=== PATIENT | male | born 1970 | race Caucasian/White ===

== ENCOUNTER → 2018-03-31 09:10 | Outpatient (CLI) | payer BC, SELFPAY ==
[2018-03-31 10:26] LABS: Absolute Neutrophil Count 4.9 X10^3/uL (2.0-7.7); Basophil# 0.07 X10^3/uL; Basophil% 0.9 % (0-1); Eosinophil# 0.33 X10^3/uL; Eosinophils% 4.1 % (0-5); Hematocrit 46.2 % (40-54); Hemoglobin 15.3 g/dl (13.0-16.5); Lymphocyte % 27.3 % (19-41); Mean Corp Hgb Conc 33.1 g/gl (32-36); Mean Corpuscular Hgb 29.3 pg (27.0-32.0); Mean Corpuscular Volume 88.3 fL (80-94); Mean Platelet Vol. 9.7 fl (6.2-12.0); Monocyte# 0.55 X10^3/uL; Monocyte% 6.8 % (0-10); Neutrophil # 4.91 X10^3/uL (2.7-7.7); Neutrophil % 60.8 % (47-70); POSITIVE COUNT NO; POSITIVE DIFFERENTIAL NO; POSITIVE MORPHOLOGY NO; Platelet Count 293 K/mm3 (150-450); RBC Distribution Width CV 13.5 % (11.6-14.6); RBC Distribution Width SD 43.3 fl (35.1-43.9); Red Blood Count 5.23 M/mm3 (4.6-6.2); White Blood Count 8.1 K/mm3 (4.4-11.0)
[2018-03-31 10:38] LABS: ALB/GLOB Ratio 1.2 RATIO (0.9-2.4); AST(SGOT) 21 U/L (15-37); Alanine Aminotransfer ALT/SGPT 30 U/L (16-61); Albumin, Serum 3.9 g/dL (3.2-5.0); Alkaline Phosphatase 127 U/L (45-117); Anion Gap 6 (5-15); BUN 17 mg/dL (7-18); BUN/Creat Ratio 16.3 RATIO (10-20); Calcium,Total 8.6 mg/dL (8.5-10.1); Chloride 106 mmol/L (98-107); Cholesterol 155 mg/dL (200); Creatinine, Serum 1.04 mg/dL (0.70-1.30); EST Glomerular Filtration Rate 81 mL/min (>60); Est Glom Filt Rate - Afr Amer 98 mL/min (>60); Globulin 3.3 g/dL (2.2-4.2); Glucose 104 mg/dL (74-106); High Density Lipoprotein 24 mg/dL; Potassium 4.2 mmol/L (3.5-5.1); Protein, Total 7.2 g/dL (6.4-8.2); Sodium Level 138 mmol/L (136-145); Triglycerides 134 mg/dL; Very Low Density Lipoprotein 27 mg/dL (5-40)
== END ==
LOC: LAB.FUTURE 01-21 10:09 → BFHLAB 04-19 14:02
PROVIDERS: Family Provider Family Medicine; PCP Family Medicine; Referring Provider Family Medicine; Visit Provider Family Medicine
DX: Z00.00 Encounter for general adult medical examination without abnormal findings (principal); I10 Essential (primary) hypertension; E78.5 Hyperlipidemia, unspecified
CPT/HCPCS: 36415; 80053; 80061; 85025

== ENCOUNTER 2019-08-19 08:27 | Day surgery (SDC) | payer BC, SELFPAY ==
[2019-08-19] VITALS (7 sets, daily range): BP systolic 119–144; BP diastolic 84–92; PULSE 66–83; RESP 14–16; TEMP 35.6–36.3; O2SAT 97–99; BMI 28.7
[2019-08-19] MEDS: Lactated Ringers 1,000 ML 100 ML IV (08:55)
--- NOTE | 2019-08-19 09:15 | H&P.OPEN ---
History of Present Illness Date of Admission: 08/19/19 The patient is a 49 year old M presents for screening colonoscopy. Patient is never had a previous colonoscopy. Patient is adopted and unsure of his family history. Patient has bowel movements daily denies any blood. Denies any chronic abdominal pain. Patient does occasionally have reflux was diagnosed with eosinophilic esophagitis back in 2017. Past Medical/Surgical History - Planned Operation Planned Operative Procedure/s: COLONOSCOPY Date of Operative Procedure: 08/19/19 Permit Signed: No S.O.S: No Is This Patient Having a Total Joint: No - Previous Hospitalizations/Surgeries HX Hospitalizations: Yes HX of Surgeries: tonsillectomy,vasectomy, cholecystectomy, R knee surgery, L knee surgery x3, L shoulder rotator cuff repair Any Problems With Anesthesia: No You/Your Family Experience Fever (Hyperthermia) With Anes: No Cholinesterase deficiency: No - Cardiovascular Hx Chest Pain within Last 2 months: No Hx of Irregular Heartbeat and/or Afib: No Hx Heart Attack: No Hx Congestive Heart Failure: No Hx Rheumatic Fever: No Hx Hypertension: Yes Hx Internal Defibrillator: No Hx Pacemaker: No Hx Cardiac Catheterization: Yes - [facility] 2017 What facility was last heart cath performed: [facility] Date of last Heart Cath: 2016 Hx Cardiac Surgery/Stents/Etc.: No Hx Stress Test: No HX Edema: No Hx Pain in Legs when Walking/Leg Cramps: No - Respiratory Chronic Cough: No HX of Shortness of Breath: No Hoarseness: No Hx Chronic Obstructive Pulmonary Disease (COPD): No Hx Asthma: No Hx Emphysema: No Hx Sleep Apnea: No Hx Oxygen Use at Home: No Hx Respiratory Tract Infection/Cold (presently): No Do You Snore Loudly (louder than talking or can be heard): No Do You Often Feel Tired/ Fatigued/ Sleepy Dring Daytime?: No Has Anyone Observed You Stop Breathing During Sleep?: No Result (for STOP score): Negative Hx Smoking: Yes Smoking Status: Former smoker - Gastrointestinal Hx Gastroesophageal Reflux: Yes Controlled With Meds: Yes - PEPCID Hx Gastrointestinal Disorders: No Hx Gastrointestinal Bleed: No Hx Ulcer: No Hx Hiatal Hernia: No Difficulty Chewing/Swallowing: No Recent Onset of Swallowing Problems: No Special diet followed at home: No Hx Unplanned Weight Loss of 20#: No HX Unplanned Weight Gain of 20#: No - Neurological Hx Seizures: No HX Syncope/Blackout Spells/Unconsciousness: No Hx CVA/Stroke: No Hx Transient Ischemic Attacks (TIA): No Hx Multiple Sclerosis: No Hx Parkinson's Disease: No Hx Head/Neck Injury: No Hx Headaches: No Hx Back Injury/Pain: No Recent Onset of Speech Difficulty: No Restless Legs: No Does patient have nerve stimulator: No - Blood Disorder Hx Leukemia: No Bleeding Tendencies: No Hx Deep Vein Thrombosis: No Hx High Cholesterol: No Blood Transmitted Disease: No Hx Hepatitis: No Hx Cirrhosis: No Hx Anemia: No Hx Blood Disorders: No - Genitourinary Hx Renal Disease: No Hx Dialysis: No - Musculoskeletal Hx Arthritis: Yes - GENERALIZED Hx Rheumatoid Arthritis: No Hx Gout: No Recent Onset of an Orthopedic Problem: No - Endocrine Hx Diabetes: No Thyroid Disease: No Hx Steroid Therapy: No - Psycho/Social Hx Substance Use: No Hx Alcohol Use: No Hx Anxiety: No Hx Depression: No Mental Illness: No Hx Dementia: No - Miscellaneous Hx Cancer: No Recent Exposure to Contagious Disease: No Active MRSA: No Hx of C-Diff: No Any Loose Teeth: No - PARTIAL UPPER Allergies Penicillins Allergy (Verified 08/19/19 08:36) Hives - Discharge Is Pt Admitted From a Senior Care, or a Senior Living: No Who Could Help: MOTHERJUNE After D/C, Where Do you Plan to Go: Return Home - Physical Exam Vitals/I&O's: Vital Signs Temp Pulse Resp BP Pulse Ox 97.1 F L 83 16 128/91 H 98 08/19/19 08:47 08/19/19 08:47 08/19/19 08:47 08/19/19 08:47 08/19/19 08:47 Oxygen Delivery Method Room Air Weight: 200 lb Body Mass Index (BMI) 28.7 General: Alert, Oriented x3, Cooperative, No apparent distress HEENT: Atraumatic Lungs: Normal air movement Cardiovascular: Regular rate Abdomen: Soft, Non Tender, Non-Distended Extremities: No clubbing, No cyanosis, No edema Neurological: Cranial nerves II-XII grossly intact Psych/Mental Status: Normal Affect Current Medications Lactated Ringer's () 1,000 mls @ 100 mls/hr IV .Q10H SATURNINO Last Admin: 08/19/19 08:55 Dose: 100 mls/hr Documented by: Assessment/Plan 49-year-old male screening for colon cancer, unknown family history as he is adopted Procedure Criteria Procedure Type: Elective COVID Risk Discussion: The surgeon/proceduralist and patient have discussed in detail the risk of exposure to and/or potential harm posed by the COVID-19 virus with having a surgery/procedure at this time versus the risk of delaying the surgery/procedure. It is not possible to know either the risk of delaying the surgery or procedure or chance of getting an infection with perfect accuracy, but a joint decision was made between the patient and the surgeon/proceduralist to proceed at this time with the scheduled surgery/procedure as indicated on the consent form. Surgery Risks - Colonoscopy I discussed with the patient the risks of the procedure: Yes Risks Include but are not Limited To: Risks include but are not limited to: Bleeding, perforation requiring further surgery, inability to complete colonoscopy requiring barium enema.
--- NOTE | 2019-08-19 09:30 | COLBX_PTH ---
PATIENT: SANGEETHA CHRISTOPHER LOC: [facility] U#:[id number] AGE/SX: 49/M ROOM: RE08/19/[address]: Dr. Emeli Diaz MD : 1970 BED: DIS: 08/19/2019 SPEC #: [id number] RECD: 08/19/19 12:52 STATUS: DAVID AMALIA #: [id number] JAZZY: 08/19/19 09:[address]: Emeli Diaz DEPT: SURGICAL PATHOLOGY RECD BY: Tawanda Yi ENTERED: 08/20/19 08:06 SP TYPE: COLON BX LULY DR: Dr. Juliocesar Brownlee DO Tissues: A - POLYP B - Ascending colon C - Transverse colon E - Rectum, NOS Procedures: Surgery Specimen Level IV HEADER OPERATION: Colonoscopy - open access (MAC) PRE-OP DIAGNOSIS: Screening TISSUE SUBMITTED: A - Appendiceal orifice polyp biopsy, B - Ascending polyp, C - Transverse polyp biopsy, D - Rectal polyp biopsy MICROSCOPIC DIAGNOSIS A. Appendiceal orifice polyp, biopsy: Fragments of colonic mucosa, no pathologic diagnosis. B. Ascending colon polyp, biopsy: Fragments of hyperplastic polyp. C. Transverse colon polyp, biopsy: Fragments of hyperplastic polyp. D. Rectal polyp, biopsy: Fragments of hyperplastic polyp. SJ:rg 08/21/19 COMMENT Case has been reviewed in consultation with Dr. Veliz who concurs with the above diagnosis. IDC:AM MICROSCOPIC DESCRIPTION Slides are reviewed. GROSS DESCRIPTION A - Received in fixative is one container labeled with the patient's name and designated appendiceal orifice polyp biopsy. The specimen consists of three irregular fragments of light thompson soft tissue that in aggregate measure 1 x 0.2 x 0.1 cm. The specimen is totally submitted in one cassette. B - Received in fixative is one container labeled with the patient's name and designated ascending polyp biopsy. The specimen consists of two irregular fragments of light thompson soft tissue that in aggregate measure 0.4 x 0.2 x 0.1 cm. The specimen is totally submitted in one cassette. C - Received in fixative is one container labeled with the patient's name and designated transverse polyp biopsy. The specimen consists of multiple irregular fragments of light thompson soft tissue that in aggregate measure 1 x 0.3 x 0.1 cm. The specimen is totally submitted in one cassette. D - Received in fixative is one container labeled with the patient's name and designated rectal polyp biopsy. The specimen consists of three irregular fragments of light thompson soft tissue that in aggregate measure 0.5 x 0.3 x 0.1 cm. The specimen is totally submitted in one cassette. / SJ:rg 08/20/19 TC:1 CPT: 47705 x4
[2019-08-19] MEDS: 0.9% Saline Lock 10 ML Syringe IV (09:52)
--- NOTE | 2019-08-19 10:13 | OP.CCLET_ITS ---
08/19/2019 Juliocesar Brownlee [address] [place] [address] Re : Colonoscopy procedure for Avelino Higgins Dear Dr. Brownlee This procedure was performed on Monday, August 19, 2019. My impressions and recommendations are as follows: Impressions : - Three 3 to 6 mm polyps in the rectum, in the transverse colon and at the appendiceal orifice, removed with a cold biopsy forceps. Resected and retrieved. - One 5 mm polyp in the ascending colon, removed with a hot snare. Resected and retrieved. - The examination was otherwise normal on direct and retroflexion views. Recommendations : - Discharge patient to home. - Resume previous diet. - Continue present medications. - Await pathology results. - Repeat colonoscopy in 3 years for surveillance based on pathology results. My findings are described in the full procedure note, which is enclosed. If I can be of further assistance, please feel free to contact me at Doctor phone number(s): , Work: . Sincerely, MD Emeli Chaparro MD 08/19/2019 10:13:01 AM This report has been signed electronically.
--- NOTE | 2019-08-19 10:13 | OP.COLON_ITS ---
Patient Name: Avelino Higgins Procedure Date: 08/19/2019 9:20 AM Date of : 1970 Age: 49 Procedure: Colonoscopy Indications: Screening for colorectal malignant neoplasm Providers: Emeli Diaz MD Referring MD: Juliocesar Brownlee Medicines: Monitored Anesthesia Care Patient Profile: This is a 49 year old male. Last Colonoscopy: none. The patient's first colonoscopy is today. Complications: No immediate complications. Procedure: Pre-Anesthesia Assessment: - Prior to the procedure, a History and Physical was performed, and patient medications and allergies were reviewed. The patient's tolerance of previous anesthesia was also reviewed. The risks and benefits of the procedure and the sedation options and risks were discussed with the patient. All questions were answered, and informed consent was obtained. Prior Anticoagulants: The patient has taken no previous anticoagulant or antiplatelet agents. ASA Grade Assessment: Per anesthesia. After reviewing the risks and benefits, the patient was deemed in satisfactory condition to undergo the procedure. After I obtained informed consent, the scope was passed under direct vision. Throughout the procedure, the patient's blood pressure, pulse, and oxygen saturations were monitored continuously. The Colonoscope was introduced through the anus and advanced to the cecum, identified by the appendiceal orifice, ileocecal valve and palpation. The colonoscopy was performed without difficulty. The patient tolerated the procedure well. The quality of the bowel preparation was good. Scope In: 9:28:22 AM Scope Withdrawal Time 0 hours 30 minutes 37 seconds Scope Out: 10:02:19 AM Total Procedure Duration Time 0 hours 33 minutes 57 seconds Findings: The perianal and digital rectal examinations were normal. Three sessile polyps were found in the rectum, transverse colon and appendiceal orifice. The polyps were 3 to 6 mm in size. These polyps were removed with a cold biopsy forceps. Resection and retrieval were complete. A 5 mm polyp was found in the ascending colon. The polyp was semi-pedunculated. The polyp was removed with a hot snare. Resection and retrieval were complete. The exam was otherwise without abnormality on direct and retroflexion views. Impression: - Three 3 to 6 mm polyps in the rectum, in the transverse colon and at the appendiceal orifice, removed with a cold biopsy forceps. Resected and retrieved. - One 5 mm polyp in the ascending colon, removed with a hot snare. Resected and retrieved. - The examination was otherwise normal on direct and retroflexion views. Recommendation: - Discharge patient to home. - Resume previous diet. - Continue present medications. - Await pathology results. - Repeat colonoscopy in 3 years for surveillance based on pathology results. Procedure Code(s): --- Professional --- 39974, PT, Colonoscopy, flexible; with removal of tumor(s), polyp(s), or other lesion(s) by snare technique 77805, 59, Colonoscopy, flexible; with biopsy, single or multiple Diagnosis Code(s): --- Professional --- Z12.11, Encounter for screening for malignant neoplasm of colon K62.1, Rectal polyp D12.3, Benign neoplasm of transverse colon (hepatic flexure or splenic flexure) D12.1, Benign neoplasm of appendix D12.2, Benign neoplasm of ascending colon CPT copyright 2017 [employer]. All rights reserved. The codes documented in this report are preliminary and upon machine cleaner review may be revised to meet current compliance requirements. MD Emeli Chaparro MD 08/19/2019 10:13:01 AM This report has been signed electronically. Number of Addenda: 0 Note Initiated On: 08/19/2019 9:20 AM
== END 2019-08-19 11:01 | disposition home or self-care (01) ==
LOC: EN 08:29 → AC 08:30
PROVIDERS: Anesthesiology; PCP Family Medicine; Referring Provider Family Medicine; Visit Provider Surgery
PROC: 0DJD8ZZ Inspection of Lower Intestinal Tract, Via Natural or Artificial Opening Endoscopic (ICD-10-PCS; CPT 45378; principal; 2019-08-19 09:25)
DX: Z12.11 Encounter for screening for malignant neoplasm of colon (principal); I10 Essential (primary) hypertension; Z87.891 Personal history of nicotine dependence; K21.9 Gastro-esophageal reflux disease without esophagitis; K62.1 Rectal polyp; D12.3 Benign neoplasm of transverse colon; D12.1 Benign neoplasm of appendix; D12.2 Benign neoplasm of ascending colon; Z88.0 Allergy status to penicillin; Z90.49 Acquired absence of other specified parts of digestive tract; Z11.59 Encounter for screening for other viral diseases
CPT/HCPCS: 45380; 45385; 87635; 88305; G2023; J7120; A4216; U0003

== ENCOUNTER → 2020-03-24 16:22 | Outpatient (CLI) | payer BC, SELFPAY ==
[2019-08-19 08:47] VITALS: BMI 28.7
[2020-03-24 17:26] LABS: Absolute Lymphocyte Count 3.02 X10^3/uL (0.83-4.51); Absolute Neutrophil Count 5.4 X10^3/uL (2.0-7.7); Basophil# 0.09 X10^3/uL; Basophil% 0.9 % (0-1); Eosinophil# 0.31 X10^3/uL; Eosinophils% 3.3 % (0-5); Hematocrit 44.1 % (40-54); Hemoglobin 14.8 g/dL (13.0-16.5); Lymphocyte # 3.02 X10^3/ul (4.0); Lymphocyte % 31.7 % (19-41); Mean Corp Hgb Conc 33.6 g/dL (32-36); Mean Corpuscular Hgb 29.3 pg (27.0-32.0); Mean Corpuscular Volume 87.3 fL (80-94); Mean Platelet Vol. 9.8 fl (6.2-12.0); Monocyte# 0.67 X10^3/uL; NRBC Flagged by Analyzer 0 % (0-5); Neutrophil # 5.39 X10^3/uL (2.7-7.7); Neutrophil % 56.7 % (47-70); Platelet Count 335 K/mm3 (150-450); RBC Distribution Width CV 13.1 % (11.6-14.6); RBC Distribution Width SD 41.5 fl (35.1-43.9); Red Blood Count 5.05 M/mm3 (4.6-6.2); White Blood Count 9.5 K/mm3 (4.4-11.0)
[2020-03-24 18:08] LABS: ALB/GLOB Ratio 1.4 RATIO (0.9-2.4); AST(SGOT) 20 U/L (15-37); Alanine Aminotransfer ALT/SGPT 48 U/L (16-61); Albumin, Serum 4.2 g/dL (3.2-5.0); Alkaline Phosphatase 126 U/L (45-117); Anion Gap 4 (5-15); BUN 20 mg/dL (7-18); BUN/Creat Ratio 18.9 RATIO (10-20); Calcium,Total 8.4 mg/dL (8.5-10.1); Chloride 106 mmol/L (98-107); Cholesterol 179 mg/dL (200); Creatinine, Serum 1.06 mg/dL (0.70-1.30); EST Glomerular Filtration Rate 78 mL/min (>60); Est Glom Filt Rate - Afr Amer 95 mL/min (>60); Glucose 77 mg/dL (74-106); High Density Lipoprotein 26 mg/dL; Magnesium 2.2 mg/dL (1.6-2.6); Potassium 3.6 mmol/L (3.5-5.1); Protein, Total 7.2 g/dL (6.4-8.2); Sodium Level 138 mmol/L (136-145); Thyroid Stim Hormone (TSH) 1.99 uIU/mL (0.358-3.74); Triglycerides 173 mg/dL; Very Low Density Lipoprotein 35 mg/dL (5-40)
== END ==
PROVIDERS: PCP Family Medicine; Visit Provider Family Medicine
DX: Z00.00 Encounter for general adult medical examination without abnormal findings (principal); I10 Essential (primary) hypertension; R00.2 Palpitations
CPT/HCPCS: 36415; 80053; 80061; 83735; 84443; 85025

== ENCOUNTER → 2020-04-08 09:13 | Outpatient (CLI) | payer BC, SELFPAY ==
[2019-08-19 08:47] VITALS: BMI 28.7
== END ==
PROVIDERS: PCP Family Medicine; Visit Provider Family Medicine
DX: R07.9 Chest pain, unspecified (principal)
CPT/HCPCS: 36415; 84484

== ENCOUNTER → 2020-04-15 13:08 | Outpatient (CLI) | payer BC, SELFPAY ==
[2019-08-19 08:47] VITALS: BMI 28.7
--- NOTE | 2020-04-15 13:13 | STEWCON_ITS ---
Reason For Study: CHEST PAIN Stress Results Protocol: Jerson Protocol WITH DEFINITY Maximum Predicted HR: 170 bpm Target HR: 145 bpm % Maximum Predicted HR: 105 % DurationHeart Rate Stage (mm:ss) (bpm) BP Comment BASELINE 75 122/84 STAGE 1 3:00 118 142/84 STAGE 2 3:00 142 178/88 STAGE 3 3:00 162 182/88 STAGE 4 1:30 179 / 4 CC DEFINITY TOTAL FOR TEST, SOB NOTED RECOVERY 121 156/88 Stress Duration: 10:30 mm:ss Maximum Stress HR: 179 bpm Baseline Echocardiogram Findings Stress Echo Wall motion Data Resting WM Intermediate WM Stress WM Interpretation Summary Exercise stress echo. 49-year-old man with a history of hypertension gastroesophageal reflux disease. Stress protocol: Resting EKG demonstrates normal sinus rhythm with a rate of 81 bpm normal intervals are noted resting blood pressure is 122/84 mmHg. The patient exercised according to the regular Jerson protocol for a total duration of 10 minutes and 31 seconds completing 1 minute and 31 seconds into stage IV of the Jerson protocol. The maximum heart rate attained was 181 bpm which was 106% of max impacted heart rate the maximum workload was 13.4 metabolic equivalents. At rest there were no ST or T wave changes noted at peak exercise upsloping ST changes less than 1 mm were noted in lead II, III and aVF V4 V5. The above did not meet the criteria for ischemia. The peak blood pressure was 180/70 mmHg which was a good blood pressure response to exercise. No chest pain was noted. No arrhythmias were noted. Stress echocardiographic. The resting and stress echocardiographic images demonstrated preserved ejection fraction at rest of 55%. There was thickening of all mathews reduction in left ventricular cavity size and peaking of ejection fraction at 65%. No wall motion abnormalities were present. Conclusion: Exercise stress echo with no EKG criteria for ischemia at a high workload. No clinical angina noted. Preserved ejection fraction. Ordering Physician: Juliocesar Brownlee Referring Physician: Juliocesar Brownlee Performed By: Paty Ferrari, KYLAH, RVT
== END ==
PROVIDERS: PCP Family Medicine; Referring Provider Family Medicine; Visit Provider Family Medicine
DX: R07.9 Chest pain, unspecified (principal); I10 Essential (primary) hypertension
CPT/HCPCS: 93017; 93350; Q9957; A4216; C8928

== ENCOUNTER 2020-04-21 09:26 | Outpatient (RCR) | payer BC, SELFPAY ==
[2019-08-19 08:47] VITALS: BMI 28.7
[2020-04-21] MEDS: COVID-19 VACC, MRNA(PFIZER)/PF 30 MCG/0.3 ML SYRINGE IM (16:28)
[2020-05-12] MEDS: COVID-19 VACC, MRNA(PFIZER)/PF 30 MCG/0.3 ML SYRINGE IM (16:32)
== END 2020-04-21 23:59 ==
LOC: IMMUN 09:26
PROVIDERS: PCP Family Medicine; Visit Provider Family Medicine
DX: Z23 Encounter for immunization (principal)
CPT/HCPCS: 0001A; 0002A; 91300

== ENCOUNTER → 2020-06-05 16:39 | Outpatient (CLI) | payer BC, SELFPAY ==
[2019-08-19 08:47] VITALS: BMI 28.7
== END ==
PROVIDERS: PCP Family Medicine; Referring Provider Internal Medicine Gastroenterology; Visit Provider Internal Medicine Gastroenterology
DX: Z11.59 Encounter for screening for other viral diseases (principal)
CPT/HCPCS: 87635; C9803; U0002

== ENCOUNTER → 2020-06-08 08:21 | Outpatient (CLI) | payer BC, SELFPAY ==
[2019-08-19 08:47] VITALS: BMI 28.7
--- NOTE | 2020-06-08 08:34 | RAD_ITS ---
STUDY: X-RAY - ESOPHAGUS (BARIUM SWALLOW) WITH FLUOROSCOPY REASON FOR EXAM: Male, 49 years old. DYSPHAGIA. Worsening gastroesophageal reflux. TECHNIQUE: 15 view(s) of the esophagus were obtained following swallowing of barium. FLUOROSCOPY TIME (if supplied): (27 seconds) minutes/seconds COMPARISON: None. FINDINGS: There is no demonstrated esophageal foreign body. There is no demonstrated stricture or mucosal abnormality. Normal gastroesophageal junction, without a demonstrated hiatal hernia. The patient ingested a 12 mm tablet of barium without any difficulty. Normal visualized aortic arch and descending thoracic aorta. Normal visualized pulmonary parenchyma. Normal visualized osseous structures of the thorax. RAD/Esophagus Dual Contrast IMPRESSION: Normal plain film x-ray examination (barium swallow) of the esophagus. Electronically Signed: Osito Khan MD at 9:58 EDT , Service support ,
== END ==
PROVIDERS: PCP Family Medicine; Referring Provider Internal Medicine Gastroenterology; Visit Provider Internal Medicine Gastroenterology
DX: R13.10 Dysphagia, unspecified (principal)
CPT/HCPCS: 74221

== ENCOUNTER → 2020-06-15 | Outpatient (CLI) | payer BC, SELFPAY ==
[2019-08-19 08:47] VITALS: BMI 28.7
--- NOTE | 2020-06-15 11:20 | EGD_PTH ---
PATIENT: SANGEETHA CHRISTOPHER LOC: [facility] U#:[id number] AGE/SX: 50/M ROOM: RE06/15/[address]: Dr. Kane Campos MD : 1970 BED: DIS: 06/15/2020 SPEC #: [id number] RECD: 06/15/20 15:30 STATUS: DAVID BACONCody #: [id number] JAZZY: 06/15/20 11:[address]: Kane Campos DEPT: SURGICAL PATHOLOGY RECD BY: Marilin Lopez ENTERED: 06/16/20 08:31 SP TYPE: EGD BIOPSY OT DR: Dr. Juliocesar Brownlee, [facility] Tissues: Esophagus, NOS Procedures: Surgery Specimen Level IV HEADER OPERATION: EGD with biopsies PRE-OP DIAGNOSIS: Dysphagia TISSUE SUBMITTED: Esophageal biopsies, rule out EE MICROSCOPIC DIAGNOSIS Esophageal biopsy: Fragments of squamous epithelium, negative for eosinophilic esophagitis. See comment. OLU:kevin 06/17/2020 COMMENT Increased number of eosinophils consistent with eosinophilic esophagitis are not seen. Focal congestion is noted. MICROSCOPIC DESCRIPTION Slides are reviewed. GROSS DESCRIPTION Received in fixative is one container labeled with the patient's name and designated esophageal biopsies. The specimen consists of multiple irregular fragments of thompson soft tissue that in aggregate measure 1 x 0.5 x 0.1 cm. The specimen is totally submitted in one cassette. / SJ:kevin 06/16/20 TC:5 CPT: 99879
== END | disposition home or self-care (01) ==
LOC: LABSPEC 15:41
PROVIDERS: PCP Family Medicine; Referring Provider Internal Medicine Gastroenterology; Visit Provider Internal Medicine Gastroenterology
DX: R13.10 Dysphagia, unspecified (principal)
CPT/HCPCS: 88305

== ENCOUNTER → 2020-09-15 16:34 | Outpatient (CLI) | payer BC, SELFPAY ==
[2019-08-19 08:47] VITALS: BMI 28.7
--- NOTE | 2020-09-15 16:38 | CT_ITS ---
INDICATION: 50YR OLD MALE W/5MTH HO PERSISTENT L SIDED CHEST RIB PAIN EXAMINATION: CT Chest W/ Contrast Injection TECHNIQUE: Helically acquired images were obtained of the chest following administration of IV contrast. A radiation dose optimization technique was used for this scan. 3D postprocessing images including MIPS were reviewed. IV Contrast dosage and agent: IV 100mL [id number]-300 COMPARISON: None. FINDINGS: Lungs: 3 mm solid pulmonary nodule in the right middle lobe (image 74, series 4). 4 mm pulmonary nodule in the left lower lobe (image 77, series 4). Mediastinum: The cardiomediastinal silhouette is not enlarged. No mediastinal, hilar or axillary adenopathy. The thoracic aorta is unremarkable. No obvious filling defect seen within the visualized pulmonary arteries. Pleura: Unremarkable Bones/Soft tissues: No suspicious osseous or soft tissue lesions Upper abdomen: At least two partially imaged enhancing masses in the right lobe of the liver. CT/Chest WITH Contrast IMPRESSION: No acute abnormalities in the chest. At least two partially imaged enhancing masses in the right lobe of the liver are indeterminate. Recommend CT or MR liver mass protocol for further evaluation. 3 mm and 4 mm pulmonary nodules as described above. Per Fleischner criteria, an optional follow-up Chest CT may be obtained in 12 months. Electronically Signed: Arie Chacon MD at 18:06 EDT Tel , Service support ,
[2020-09-15 17:15] LABS: CREATININE FINGERSTICK 1.4 mg/dL (0.70-1.30)
== END ==
PROVIDERS: PCP Family Medicine; Referring Provider Family Medicine; Visit Provider Family Medicine
DX: R07.81 Pleurodynia (principal)
CPT/HCPCS: 71260; Q9967

== ENCOUNTER → 2020-10-02 06:23 | Outpatient (CLI) | payer BC, SELFPAY ==
[2019-08-19 08:47] VITALS: BMI 28.7
--- NOTE | 2020-10-02 07:00 | MRI_ITS ---
STUDY: MRI ABDOMEN WITH AND WITHOUT CONTRAST REASON FOR EXAM: Male, 50 years old. Liver mass TECHNIQUE: Standardized fat and water weighted pulse sequences were obtained in all 3 orthogonal planes post contrast administration. IV 19ml Dotarem was administered for the contrast portion of the examination. COMPARISON: CT 09/15/2020. FINDINGS: The visualized lung bases are unremarkable. The visualized portions of the heart are within normal limits. There is a slight drop in intensity on opposed phase images compared to in phase images compatible with fatty liver. There are two T1 hypointense/T2 hyperintense lesions in segment 5 of the liver measuring 1 cm and 7 mm, respectively. These lesions demonstrate progressive enhancement with retained contrast on delayed phase. No washout. There are also wedge-shaped regions surrounding these lesions which demonstrate abnormal enhancement pattern compared to the surrounding hepatic parenchyma, most consistent with transient hepatic intensity differences. There are surgical clips in the gallbladder fossa consistent with a prior cholecystectomy. Normal spleen. Normal pancreas. Normal bilateral adrenal glands. Normal right kidney. Normal left kidney. Normal visualized stomach. Normal small intestine. Normal colon. Normal abdominal aorta. Normal inferior vena cava. Normal retroperitoneum. Normal abdominal wall. Normal osseous structures. MRI/MRI Abd WITH and W/O Contrast IMPRESSION: 1 cm and 0.7 cm hepatic hemangiomas in segment 5 with surrounding transient hepatic intensity differences (THIDs). Fatty liver. Electronically Signed: Arie Chacon MD at 17:00 EDT Tel , Service support ,
== END ==
PROVIDERS: PCP Family Medicine; Referring Provider Family Medicine; Visit Provider Family Medicine
DX: R16.0 Hepatomegaly, not elsewhere classified (principal)
CPT/HCPCS: 74183; A9575

== ENCOUNTER → 2021-11-29 | Outpatient (CLI) | payer BC, SELFPAY ==
[2021-11-29 08:07] LABS: Absolute Lymphocyte Count 1.99 X10^3/uL (0.83-4.51); Absolute Neutrophil Count 4.6 X10^3/uL (2.0-7.7); Basophil% 1.3 % (0-1); Eosinophil# 0.18 X10^3/uL; Eosinophils% 2.4 % (0-5); Hematocrit 47.3 % (40-54); Hemoglobin 16.1 g/dL (13.0-16.5); Lymphocyte # 1.99 X10^3/ul (0.83-4.51); Lymphocyte % 26.5 % (19-41); Mean Corpuscular Hgb 30.3 pg (27.0-32.0); Mean Corpuscular Volume 89.1 fL (80-94); Mean Platelet Vol. 9.1 fl (6.2-12.0); NRBC Flagged by Analyzer 0 % (0-5); Neutrophil # 4.63 X10^3/uL (2.7-7.7); Neutrophil % 61.5 % (47-70); Platelet Count 306 K/mm3 (150-450); RBC Distribution Width CV 13.2 % (11.6-14.6); RBC Distribution Width SD 43.1 fl (35.1-43.9); Red Blood Count 5.31 M/mm3 (4.6-6.2); White Blood Count 7.5 K/mm3 (4.4-11.0)
[2021-11-29 08:45] LABS: Albumin, Serum 3.9 g/dL (3.2-5.0); BUN 15 mg/dL (7-18); BUN/Creat Ratio 13.8 RATIO (10-20); Creatinine, Serum 1.09 mg/dL (0.70-1.30); EST Glomerular Filtration Rate 75 mL/min (>60); Est Glom Filt Rate - Afr Amer 91 mL/min (>60); Glucose 110 mg/dL (74-106); Protein, Total 6.9 g/dL (6.4-8.2)
[2021-11-29 08:46] LABS: ALB/GLOB Ratio 1.3 RATIO (0.9-2.4); AST(SGOT) 11 U/L (15-37); Alanine Aminotransfer ALT/SGPT 35 U/L (16-61); Alkaline Phosphatase 119 U/L (45-117); Anion Gap 4 (5-15); Calcium,Total 8.7 mg/dL (8.5-10.1); Chloride 107 mmol/L (98-107); Cholesterol 160 mg/dL (200); High Density Lipoprotein 28 mg/dL; PSA,Total - Annual Screen 1.38 ng/mL (0.00-4.00); Potassium 4.2 mmol/L (3.5-5.1); Sodium Level 140 mmol/L (136-145); Triglycerides 95 mg/dL; Very Low Density Lipoprotein 19 mg/dL (5-40)
[2021-11-29 14:14] LABS: Hemoglobin A1c 5.3 % (3.8-5.6)
== END | disposition home or self-care (01) ==
LOC: LAB 07:30
PROVIDERS: PCP Family Medicine; Referring Provider Family Medicine; Visit Provider Family Medicine
DX: Z00.00 Encounter for general adult medical examination without abnormal findings (principal); Z12.5 Encounter for screening for malignant neoplasm of prostate
CPT/HCPCS: 36415; 80053; 80061; 83036; 84153; 85025; G0103

== ENCOUNTER → 2023-02-01 | Outpatient (CLI) | payer BC, SELFPAY ==
[2023-02-01 08:53] LABS: Absolute Lymphocyte Count 2.54 X10^3/uL (0.83-4.51); Absolute Neutrophil Count 4.9 X10^3/uL (2.0-7.7); Basophil% 1.2 % (0-1); Eosinophils% 4.6 % (0-5); Hematocrit 46.7 % (40-54); Hemoglobin 15.2 g/dL (13.0-16.5); Lymphocyte # 2.54 X10^3/ul (0.83-4.51); Lymphocyte % 29.5 % (19-41); Mean Corp Hgb Conc 32.5 g/dL (32-36); Mean Corpuscular Hgb 29.2 pg (27.0-32.0); Mean Corpuscular Volume 89.6 fL (80-94); Mean Platelet Vol. 9.4 fl (6.2-12.0); Monocyte# 0.61 X10^3/uL; Monocyte% 7.1 % (0-10); NRBC Flagged by Analyzer 0 % (0-5); Neutrophil # 4.94 X10^3/uL (2.7-7.7); Neutrophil % 57.3 % (47-70); Platelet Count 309 K/mm3 (150-450); RBC Distribution Width CV 13.4 % (11.6-14.6); RBC Distribution Width SD 44.1 fl (35.1-43.9); Red Blood Count 5.21 M/mm3 (4.6-6.2); White Blood Count 8.6 K/mm3 (4.4-11.0)
[2023-02-01 09:51] LABS: ALB/GLOB Ratio 1.1 RATIO (0.9-2.4); AST(SGOT) 14 U/L (15-37); Alanine Aminotransfer ALT/SGPT 29 U/L (16-61); Albumin, Serum 3.5 g/dL (3.2-5.0); Alkaline Phosphatase 116 U/L (45-117); Anion Gap 3 (5-15); BUN 20 mg/dL (7-18); BUN/Creat Ratio 18.3 RATIO (10-20); Calcium,Total 8.9 mg/dL (8.5-10.1); Chloride 109 mmol/L (98-107); Cholesterol 169 mg/dL (200); Creatinine, Serum 1.09 mg/dL (0.70-1.30); EST Glomerular Filtration Rate 75 mL/min (>60); Est Glom Filt Rate - Afr Amer 91 mL/min (>60); Globulin 3.2 g/dL (2.2-4.2); Glucose 111 mg/dL (74-106); High Density Lipoprotein 28 mg/dL; Potassium 4.1 mmol/L (3.5-5.1); Protein, Total 6.7 g/dL (6.4-8.2); Sodium Level 140 mmol/L (136-145); Triglycerides 110 mg/dL; Very Low Density Lipoprotein 22 mg/dL (5-40)
== END | disposition home or self-care (01) ==
LOC: LAB 07:56
PROVIDERS: PCP Family Medicine; Referring Provider Nurse Practitioner Family; Visit Provider Nurse Practitioner Family
DX: Z00.01 Encounter for general adult medical examination with abnormal findings (principal); I10 Essential (primary) hypertension; E78.6 Lipoprotein deficiency
CPT/HCPCS: 36415; 80053; 80061; 84153; 85025; G0103

== ENCOUNTER → 2023-02-01 | Outpatient (CLI) | payer BC, SELFPAY ==
--- NOTE | 2023-02-01 13:17 | CT_ITS ---
EXAM: CT CHEST, LUNG CANCER SCREENING WITHOUT INTRAVENOUS CONTRAST CLINICAL INDICATION: Personal history of nicotine dependence TECHNIQUE: Helically acquired images were obtained of the chest without intravenous contrast using low dose (LDCT) lung cancer screening protocol. This CT exam was performed using one or more of the following dose reduction techniques: automated exposure control, adjustment of the mA and/or kV according to patient size, and/or use of iterative reconstruction technique. COMPARISON: CT chest, 09/15/2020. FINDINGS: LUNGS AND PLEURAL SPACES: Unchanged solid 6 mm right upper lobe pulmonary nodule (image 73, series 2). Unchanged solid pleural-based 3 mm nodule in the right middle lobe (image 148, series 2). There are 2 solid pulmonary nodules in the left lower lobe, the largest measuring approximately 5 mm, unchanged (image 143, series 2). No pneumothorax. No focal airspace disease. No pleural effusion. HEART: No significant abnormality. Heart size is normal. No pericardial effusion. No significant coronary artery calcifications. MEDIASTINUM: No significant abnormality. No mediastinal or hilar adenopathy. Esophagus is unremarkable. No hiatal hernia. THYROID: No significant abnormality. No thyroid lesions. BONES/JOINTS: Degenerative changes in the spine. No suspicious lytic or blastic abnormality. VASCULATURE: No significant abnormality. Thoracic aorta is non-dilated. LYMPH NODES: No significant abnormality. No enlarged lymph nodes. CT/Low Dose CT Lung Screening IMPRESSION: ACR Lung CT Screening Reporting And Data System (Lung-RADS) score: 2 - Benign Appearance or Behavior. Recommend continued annual screening with a low-dose CT (LDCT) in 12 months. Electronically Signed: Gareth Day DO at 19:44 EST ,
== END | disposition home or self-care (01) ==
PROVIDERS: PCP Family Medicine; Referring Provider Nurse Practitioner Family; Visit Provider Nurse Practitioner Family
DX: Z12.2 Encounter for screening for malignant neoplasm of respiratory organs (principal); Z87.891 Personal history of nicotine dependence
CPT/HCPCS: 71271

== ENCOUNTER 2023-02-20 07:00 | Day surgery (SDC) | payer BC, SELFPAY ==
--- OUTSIDE RECORDS SUMMARY | 2023-02-20 07:04 | XMS RPT_ITS | CCD ---
Author Name Unknown Address [address] [place] [address] Organization [facility] Results Test Name Value Interpretation Reference Range Facil ity Summary Purpose Family History No Family History Records Found Advance Directives No Advanced Directives Records Found Additional Source Comments (unrecognized sect ion and content) No Status Records Found INFORMATION SOURCE (unrecogn ized section and content) FOR RECORDS PERTAINING TO PATIENTS WHO ARE OR HAVE BEEN ENROLLED IN A CHEMICAL DEPENDENCY/SUBSTANCEABUSE PROGRAM, SOME INFORMATION MAY BE OMITTED. This clinical summary was aggregated from multiple sources. Caution should be exercised in using it in the provision of clinical care. This summary normalizes information from multiple sources, and as a consequence, information in this document may materially change the coding, format and clinical context of patient data. In addition, data may be omitted in some cases. CLINICAL DECISIONS SHOULD BE BASED ON THE PRIMARY CLINICAL RECORDS. [employer]. provides no warranty or guarantee of the accuracy or completeness of information in this document.
[2023-02-20 07:14] VITALS: BP 140/90; PULSE 75; RESP 18; TEMP 36.2; O2SAT 100; BMI 30.8
--- NOTE | 2023-02-20 07:18 | H&P.OPEN ---
HPI - General General Date of Service: 02/20/23 HPI Narrative SANGEETHA CHRISTOPHER, is a 52 M who presents for surveillance colonoscopy due to history of colon polyps. Patient's last colonoscopy was 08/2019 patient had 3 polyps at that time. Patient has bowel movements daily denies any blood. Patient denies any chronic abdominal pain/nausea/vomiting/chronic abdominal pain. Patient denies any family history of colon cancer. [facility] Medical History (Updated 02/20/23 @ 07:[address] 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 Hx of colonic polyps Normal stress echocardiogram Wears glasses Home Medications amlodipine 10 mg tablet 10 mg PO DAILY 08/14/19 [History Last Taken 02/20/23] budesonide 3 mg capsule,delayed,extended release 6 mg PO DAILY 08/14/19 [History Last Taken Unknown] metoprolol succinate 50 mg tablet,extended release 24 hr 50 mg PO DAILY 01/04/23 [History Last Taken 02/20/23] pantoprazole 40 mg tablet,delayed release 40 mg PO DAILY 01/04/23 [History Last Taken Unknown] Allergy/AdvReac Type Severity Reaction Status Date / Time animal dander Allergy sore Verified 02/20/23 07:12 throat, feels ill black pepper Allergy sore Verified 02/20/23 07:12 throat, feels ill garlic Allergy sore Verified 02/20/23 07:12 throat, feels ill onion Allergy sore Verified 02/20/23 07:12 throat, feels ill Penicillins Allergy Hives Verified 02/20/23 07:12 lisinopril AdvReac Cough Verified 02/20/23 07:12 Family History (Updated 01/04/23 @ 09:48 by Lanie Pickard) Unknown No problems noted. Surgical History (Updated 02/15/23 @ 15:41 by Felicia Allen) History of left knee surgery History of right knee surgery Hx of cholecystectomy Hx of colonoscopy Hx of shoulder surgery Hx of tonsillectomy Social History (Updated 01/04/23 @ 09:57 by Lanie Pickard) adopted: Yes household members: spouse current occupational status: employed Smoking Status: Former smoker Past Medical/Surgical History Planned Operation Planned Operative Procedure/s: COLONOSCOPY S.O.S: No Previous Hospitalizations/Surgeries HX Hospitalizations: No HX of Surgeries: tonsillectomy,vasectomy, cholecystectomy, R knee surgery, L knee surgery x3, L shoulder rotator cuff repair Any Problems With Anesthesia: No You/Your Family Experience Fever (Hyperthermia) With Anes: No Cholinesterase deficiency: No Cardiovascular Hx Chest Pain within Last 2 months: No Hx of Irregular Heartbeat and/or Afib: No Hx Heart Attack: No Hx Congestive Heart Failure: No Hx Rheumatic Fever: No Hx Hypertension: Yes (CONTROLLED ON MED) Hx Internal Defibrillator: No Hx Pacemaker: No Hx Cardiac Catheterization: Yes ([facility] 2016) What facility was last heart cath performed: - Date of last Heart Cath: - Hx Cardiac Surgery/Stents/Etc.: No Hx Stress Test: No Hx Pain in Legs when Walking/Leg Cramps: No Respiratory Chronic Cough: No HX of Shortness of Breath: No Hoarseness: No Hx Chronic Obstructive Pulmonary Disease (COPD): No Hx Asthma: No Hx Emphysema: No Hx Sleep Apnea: No Hx Respiratory Tract Infection/Cold (presently): No Do You Snore Loudly (louder than talking or can be heard): No Do You Often Feel Tired/ Fatigued/ Sleepy Dring Daytime?: No Has Anyone Observed You Stop Breathing During Sleep?: No Result (for STOP score): Negative Hx Smoking: Yes Smoking Status: Former smoker Gastrointestinal Controlled With Meds: Yes (PEPCID) Hx Gastrointestinal Disorders: No Hx Gastrointestinal Bleed: No Hx Ulcer: No Hx Hiatal Hernia: No Difficulty Chewing/Swallowing: No Special diet followed at home: No Hx Unplanned Weight Loss of 20#: No HX Unplanned Weight Gain of 20#: No Neurological Hx Seizures: No HX Syncope/Blackout Spells/Unconsciousness: No Hx Transient Ischemic Attacks (TIA): No Hx Multiple Sclerosis: No Hx Parkinson's Disease: No Hx Head/Neck Injury: No Hx Headaches: No Hx Back Injury/Pain: No Recent Onset of Speech Difficulty: No Restless Legs: No Does patient have nerve stimulator: No Blood Disorder Hx Leukemia: No Bleeding Tendencies: No Hx Deep Vein Thrombosis: No Hx High Cholesterol: No Blood Transmitted Disease: No Hx Hepatitis: No Hx Cirrhosis: No Hx Anemia: No Hx Blood Disorders: No Genitourinary Hx Renal Disease: No Hx Dialysis: No Musculoskeletal Hx Arthritis: Yes (GENERALIZED) Hx Rheumatoid Arthritis: No Hx Gout: No Recent Onset of an Orthopedic Problem: No Endocrine Hx Diabetes: No Thyroid Disease: No Hx Steroid Therapy: No Psycho/Social Hx Substance Use: No Hx Alcohol Use: No Hx Anxiety: No Hx Depression: No Mental Illness: No Hx Dementia: No Miscellaneous Hx Cancer: No Recent Exposure to Contagious Disease: No Hx of C-Diff: No Any Loose Teeth: No (PARTIAL UPPER) Allergies animal dander Allergy (Verified 02/20/23 07:12) sore throat, feels ill black pepper Allergy (Verified 02/20/23 07:12) sore throat, feels ill garlic Allergy (Verified 02/20/23 07:12) sore throat, feels ill onion Allergy (Verified 02/20/23 07:12) sore throat, feels ill Penicillins Allergy (Verified 02/20/23 07:12) Hives lisinopril Adverse Reaction (Verified 02/20/23 07:12) Cough Discharge Is Pt Admitted From a Fdc, or a Halfway: No After D/C, Where Do you Plan to Go: Return Home Physical Exam Const alert, oriented x3 and no apparent distress HEENT normocephalic and head/scalp atraumatic Resp normal respiratory effort Cardio regular rate GI soft to palpation and non-tender; Negative for non-distended Palpation: Negative for guarding Extremity no clubbing, cyanosis or edema Skin no rashes or lesions noted Neuro CN's II-XII intact bilaterally Psych mental status grossly normal Assessment & Plan Assessment/Plan (1) Hx of colonic polyps: Surgery Risks - Colonoscopy I discussed with the patient the risks of the procedure: Yes Risks Include but are not Limited To: Risks include but are not limited to: Bleeding, perforation requiring further surgery, inability to complete colonoscopy requiring barium enema.
[2023-02-20] MEDS: Lactated Ringers 1,000 ML 15 ML IV (07:23)
--- NOTE | 2023-02-20 08:45 | COLBX_PTH ---
PATHOLOGY RESULTS PATIENT: SANGEETHA CHRISTOPHER LOC: EN U#:[id number] AGE/SX: 52/M ROOM: RE02/20/[address]: Dr. Emeli Diaz MD : 1970 BED: DIS: 02/20/2023 SPEC #: [id number] RECD: 02/20/23 11:59 STATUS: DAVID AMALIA #: [id number] JAZZY: 02/20/23 08:[address]: Emeli Diaz DEPT: SURGICAL PATHOLOGY RECD BY: Anupama Herrera ENTERED: 02/20/23 12:00 SP TYPE: COLON BX OTHR DR: Dr. Juliocesar Brownlee DO Tissues: Transverse colon Rectum, NOS Procedures: Surgery Specimen Level IV HEADER OPERATION: Colonoscopy - open access PRE-OP DIAGNOSIS: History of colonic polyps TISSUE SUBMITTED: A - Transverse colon biopsy, B - Rectal biopsy MICROSCOPIC DIAGNOSIS A. Transverse colon, biopsy: Fragments of hyperplastic polyp. B. Rectum, biopsy: Fragments of hyperplastic polyp. AM:kevin 02/21/2023 MICROSCOPIC DESCRIPTION Slides are reviewed. GROSS DESCRIPTION A - Received in fixative is one container labeled with the patient's name and designated transverse colon biopsy. The specimen consists of multiple irregular fragments of light thompson soft tissue that in aggregate measure 1.0 x 0.3 x 0.1 cm. The specimen is totally submitted in one cassette. B - Received in fixative is one container labeled with the patient's name and designated rectal biopsy. The specimen consists of two irregular fragments of light thompson soft tissue that in aggregate measure 0.4 x 0.2 x 0.1 cm. The specimen is totally submitted in one cassette. / SJ:kevin 02/20/2023 TC:5 CPT: 14119 x2
[2023-02-20 08:50] VITALS: BP 114/70; BP 140/90; PULSE 63; RESP 18; TEMP 37.1; O2SAT 97
--- NOTE | 2023-02-20 08:53 | OP.CCLET_ITS ---
02/20/2023 Juliocesar Brownlee [address] [place] [address] Re : Colonoscopy procedure for Avelino Higgins Dear Dr. Brownlee This procedure was performed on Monday, February 20, 2023. My impressions and recommendations are as follows: Impressions : - Two 3 to 6 mm polyps in the rectum and in the transverse colon, removed with a cold biopsy forceps. Resected and retrieved. - The examination was otherwise normal on direct and retroflexion views. Recommendations : - Discharge patient to home. - Resume previous diet. - Continue present medications. - Await pathology results. - Repeat colonoscopy in 3 - 5 years for surveillance based on pathology results. My findings are described in the full procedure note, which is enclosed. If I can be of further assistance, please feel free to contact me at Doctor phone number(s): , Work: . Sincerely, MD Emeli Chaparro MD 02/20/2023 8:52:32 AM This report has been signed electronically.
--- NOTE | 2023-02-20 08:53 | OP.COLON_ITS ---
Patient Name: Avelino Higgins Procedure Date: 02/20/2023 8:18 AM Date of : 1970 Age: 52 Procedure: Colonoscopy Indications: High risk colon cancer surveillance: Personal history of colonic polyps Providers: Emeli Diaz MD Medicines: Monitored Anesthesia Care Patient Profile: This is a 52 year old male. Last Colonoscopy: August 2019. Pt adopted Complications: No immediate complications. Procedure: Pre-Anesthesia Assessment: - Prior to the procedure, a History and Physical was performed, and patient medications and allergies were reviewed. The patient's tolerance of previous anesthesia was also reviewed. The risks and benefits of the procedure and the sedation options and risks were discussed with the patient. All questions were answered, and informed consent was obtained. Prior Anticoagulants: The patient has taken no anticoagulant or antiplatelet agents. ASA Grade Assessment: Per anesthesia. After reviewing the risks and benefits, the patient was deemed in satisfactory condition to undergo the procedure. After I obtained informed consent, the scope was passed under direct vision. Throughout the procedure, the patient's blood pressure, pulse, and oxygen saturations were monitored continuously. The Colonoscope was introduced through the anus and advanced to the cecum, identified by appendiceal orifice and ileocecal valve. The colonoscopy was performed without difficulty. The patient tolerated the procedure well. The quality of the bowel preparation was good. Scope In: 8:27:17 AM Scope Withdrawal Time 0 hours 14 minutes 55 seconds Scope Out: 8:46:37 AM Total Procedure Duration Time 0 hours 19 minutes 20 seconds Findings: The perianal and digital rectal examinations were normal. Two sessile polyps were found in the rectum and transverse colon. The polyps were 3 to 6 mm in size. These polyps were removed with a cold biopsy forceps. Resection and retrieval were complete. The exam was otherwise without abnormality on direct and retroflexion views. Impression: - Two 3 to 6 mm polyps in the rectum and in the transverse colon, removed with a cold biopsy forceps. Resected and retrieved. - The examination was otherwise normal on direct and retroflexion views. Recommendation: - Discharge patient to home. - Resume previous diet. - Continue present medications. - Await pathology results. - Repeat colonoscopy in 3 - 5 years for surveillance based on pathology results. Procedure Code(s): --- Professional --- 14432, PT, Colonoscopy, flexible; with biopsy, single or multiple Diagnosis Code(s): --- Professional --- Z86.010, Personal history of colonic polyps D12.8, Benign neoplasm of rectum D12.3, Benign neoplasm of transverse colon (hepatic flexure or splenic flexure) CPT copyright 2021 [employer]. All rights reserved. The codes documented in this report are preliminary and upon wire wrapping machine operator review may be revised to meet current compliance requirements. MD Emeli Chaparro MD 02/20/2023 8:52:32 AM This report has been signed electronically. Number of Addenda: 0 Note Initiated On: 02/20/2023 8:18 AM
[2023-02-20 09:00] VITALS: BP 104/74; BP 140/90; PULSE 60; RESP 18; O2SAT 96
[2023-02-20 09:05] VITALS: BP 110/78; BP 140/90; PULSE 57; RESP 18; O2SAT 98
[2023-02-20 09:09] VITALS: BP 105/75; BP 140/90; PULSE 61; RESP 18; TEMP 36.3; O2SAT 100
[2023-02-20 09:26] VITALS: BP 140/90
== END 2023-02-20 09:37 | disposition home or self-care (01) ==
LOC: EN 07:02 → AC 07:02
PROVIDERS: PCP Family Medicine; Referring Provider Family Medicine; Visit Provider Surgery
PROC: 0DJD8ZZ Inspection of Lower Intestinal Tract, Via Natural or Artificial Opening Endoscopic (ICD-10-PCS; CPT 45378; principal; 2023-02-20 08:40)
DX: Z12.11 Encounter for screening for malignant neoplasm of colon (principal); Z87.891 Personal history of nicotine dependence; I10 Essential (primary) hypertension; Z90.49 Acquired absence of other specified parts of digestive tract; Z86.010 Personal history of colon polyps; D12.8 Benign neoplasm of rectum; D12.3 Benign neoplasm of transverse colon
CPT/HCPCS: 45380; 88305; J7120; J2405

== ENCOUNTER → 2023-12-07 | Outpatient (CLI) | payer BC, SELFPAY ==
[2023-12-04 10:41] LABS: Absolute Lymphocyte Count 2.22 X10^3/uL (0.83-4.51); Absolute Neutrophil Count 5.3 X10^3/uL (2.0-7.7); Basophil% 1.2 % (0-1); Eosinophil# 0.32 X10^3/uL; Eosinophils% 3.7 % (0-5); Hematocrit 46.4 % (40-54); Hemoglobin 15.7 g/dL (13.0-16.5); Lymphocyte # 2.22 X10^3/ul (0.83-4.51); Lymphocyte % 25.7 % (19-41); Mean Corp Hgb Conc 33.8 g/dL (32-36); Mean Corpuscular Volume 88.7 fL (80-94); Mean Platelet Vol. 9.2 fl (6.2-12.0); Monocyte# 0.71 X10^3/uL; Monocyte% 8.2 % (0-10); NRBC Flagged by Analyzer 0 % (0-5); Neutrophil # 5.26 X10^3/uL (2.7-7.7); Neutrophil % 60.7 % (47-70); Platelet Count 306 K/mm3 (150-450); RBC Distribution Width CV 13.4 % (11.6-14.6); RBC Distribution Width SD 43.4 fl (35.1-43.9); Red Blood Count 5.23 M/mm3 (4.6-6.2); White Blood Count 8.7 K/mm3 (4.4-11.0)
[2023-12-04 11:02] LABS: Anion Gap 0 (5-15); BUN 16 mg/dL (7-18); BUN/Creat Ratio 15.5 RATIO (10-20); Calcium,Total 9.1 mg/dL (8.5-10.1); Chloride 108 mmol/L (98-107); Creatinine, Serum 1.03 mg/dL (0.70-1.30); EST Glomerular Filtration Rate 80 mL/min (>60); Est Glom Filt Rate - Afr Amer 97 mL/min (>60); Glucose 103 mg/dL (74-106); Potassium 4.7 mmol/L (3.5-5.1); Sodium Level 139 mmol/L (136-145)
--- NOTE | 2023-12-07 11:55 | EKG12_ITS ---
Test Reason : PREOP Blood Pressure : */* mmHG Vent. Rate : 80 BPM Atrial Rate : 80 BPM P-R Int : 158 ms QRS Dur : 78 ms QT Int : 356 ms P-R-T Axes : 41 56 27 degrees QTcB Int : 410 ms Normal sinus rhythm Normal ECG Confirmed by KEVIN JEAN, GENO ([id number]), editor sound [place] ([id number]) on 12/08/2023 11:11:11 AM Referred By: Caren Kevin Confirmed By: GENO BROWN MD
== END | disposition home or self-care (01) ==
PROVIDERS: PCP Family Medicine; Referring Provider Physician Assistant Surgical; Visit Provider Physician Assistant Surgical
DX: Z01.818 Encounter for other preprocedural examination (principal); Z01.810 Encounter for preprocedural cardiovascular examination
CPT/HCPCS: 36415; 80048; 85025; 93005

== ENCOUNTER → 2024-01-08 | Outpatient (CLI) | payer BC, SELFPAY ==
[2024-01-08 19:03] LABS: Cholesterol 181 mg/dL (200); High Density Lipoprotein 26 mg/dL; PSA,Total - Annual Screen 0.87 ng/mL (0.00-4.00); Triglycerides 207 mg/dL; Very Low Density Lipoprotein 41 mg/dL (5-40)
== END | disposition home or self-care (01) ==
LOC: BFHLAB 15:39
PROVIDERS: PCP Family Medicine; Referring Provider Family Medicine; Visit Provider Family Medicine
DX: Z00.00 Encounter for general adult medical examination without abnormal findings (principal); Z12.5 Encounter for screening for malignant neoplasm of prostate
CPT/HCPCS: 36415; 80061; 84153; G0103

== ENCOUNTER → 2024-01-18 | Outpatient (CLI) | payer BC, SELFPAY | END | disposition home or self-care (01) | LOC: SL 08:51 | PROVIDERS: PCP Family Medicine; Referring Provider Family Medicine; Visit Provider Family Medicine | DX: R06.83 Snoring (principal); I10 Essential (primary) hypertension | CPT/HCPCS: 95806 ==

== ENCOUNTER → 2025-01-10 | Outpatient (CLI) | payer BC, SELFPAY ==
--- OUTSIDE RECORDS SUMMARY | 2025-01-10 16:03 | XMS RPT_ITS | CCD ---
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 Juliocesar Brownlee Primary Care Provider [phone] Lanie Pickard Attending Provider Unavailable Dr. Juliocesar Brownlee Referring Provider Dr. Emeli Diaz Attending Provider Dr. Emeli Diaz Other Provider Juliocesar Brownlee Primary Care Unavailable Caren Kevin Referring Unavailable Caren Kevin Attending Unavailable Juliocesar Brownlee Primary Care Unavailable Juliocesar Brownlee Referring Unavailable Juliocesar Brownlee Attending Unavailable Juliocesar Brownlee Primary Care Unavailable Juliocesar Brownlee Referring Unavailable Juliocesar Brownlee Attending Unavailable Juliocesar Brownlee Primary Care Unavailable Juliocesar Brownlee Referring Unavailable Luis Daniel Ferrari NP Attending Unavailable Juliocesar Brownlee Primary Care Unavailable Dylon Huffman Attending Unavailable Caren Kevin Referring Unavailable Allergies Allergy Classification Reported Allergen(s) Allergy Type Date of Onset Reaction(s) Facility (4 sources) Penicillins Allergy to substance 0 Hives [facility] (3 sources) Black Pepper Preparation Drug Allergy 3 sore throat, feels ill [facility] (3 sources) Garlic preparation Drug Allergy 3 sore throat, feels ill [facility] (3 sources) Lisinopril Drug Allergy 3 Cough [facility] (3 sources) Onion extract Drug Allergy 3 sore throat, feels ill [facility] (4 sources) animal dander; Translations: [animal dander] Allergy to substance 3 sore throat, feels ill [facility] (1 source) Black Pepper Preparation Drug Allergy 4 [facility] (1 source) Garlic preparation Drug Allergy 4 [facility] (1 source) Lisinopril Drug Allergy 4 [facility] (1 source) Onion extract Drug Allergy 4 [facility] (1 source) Penicillins Drug allergy (disorder) 5 [facility] Medications Current Medications Medication Drug Class(es) Dates Sig (Normalized) Sig (Original) amLODIPine 10 mg oral tablet (4 sources) Dihydropyridine Calcium Channel Jayesh Start: 08-14-2019 take 10 mg by mouth once daily Amlodipine Active 10 MG PO DAILY August 13, 2019 11:00pm budesonide 3 mg delayed release oral capsule (4 sources) Corticosteroid Start: 08-14-2019 take 6 mg by mouth once daily Budesonide Active 6 MG PO DAILY August 13, 2019 11:00pm 24 hr metoprolol succinate 50 mg extended release oral tablet (3 sources) beta-Adrenergic Jayesh Start: 01-04-2023 take 50 mg by mouth once daily Metoprolol Succinate Active 50 MG PO DAILY January 04, 2023 12:00am pantoprazole 40 mg delayed release oral tablet (3 sources) Proton Pump Inhibitor Start: 01-04-2023 take 40 mg by mouth once daily Pantoprazole Active 40 MG PO DAILY January 04, 2023 12:00am Completed/Discontinued Medications Medication Drug Class(es) Dates Sig (Normalized) Sig (Original) famotidine 40 mg oral tablet (4 sources) Histamine-2 Receptor Antagonist Start: 08-14-2019 End: 01-04-2023 take 40 mg by mouth once daily Famotidine Discontinued 40 MG PO DAILY August 13, 2019 11:00pm January 04, 2023 9:52am Problems Problem Classification Problem Date Documented Da te Episodic/Chronic Gastritis and duodenitis (4 sources) Gastritis; Translations: [Gastritis, unspecified, without bleeding] 11-13-2015 Episodic Nonspecific chest pain (4 sources) Atypical chest pain; Translations: [Other chest pain] 11-13-2015 Episodic Other and unspecified benign neoplasm (1 source) History of polyp of colon; Translations: [Personal history of colonic polyps] 02-20-2023 Episodic Other and unspecified benign neoplasm (1 source) Personal history of colonic polyps; Translations: [Personal history of colonic polyps] 02-20-2023 Episodic Other lower respiratory disease (1 source) Snoring; Translations: [Snoring] Onset: 02-20-2024 Episodic Other screening for suspected conditions (not mental disorders or infectious disease) (3 sources) Patient encounter status; Translations: [Encounter for screening for malignant neoplasm of colon] 01-04-2023 Episodic Other upper respiratory infections (1 source) Acute maxillary sinusitis, unspecified; Translations: [Acute maxillary sinusitis, unspecified] Onset: 04-28-2024 Episodic Results Test Name Value Interpretation Reference Range Facility Urgent Care Visit Reporton 0 04-28-2024 Urgent Care Visit Report [facility] [address], [address] [place] [address] OFFICE VISIT Date of Service: 04/28/24 MR#: [id number] Acct: [id number] Name: SANGEETHA CHRISTOPHER Rep #: [id number] : 1970 Provider: ROMI moctezuma Age/Sex: 53/M Location: [facility] Status: Signed Intake Vital Signs 02/20/23 07:14 04/28/24 09:40 Height 5 ft 10 in 5 ft 10 in Weight: 222 lb 6 oz BMI 31.8 BP 124/80 H Position Sitting Pulse 84 Temp 99.0 F Temp Source Oral Pulse Oximetry (%) 96 Oxygen Delivery Method room air Intake Visit Reasons: Cough Allergies animal dander Allergy (Verified 02/20/23 07:12) sore throat, feels ill black pepper Allergy (Verified 02/20/23 07:12) sore throat, feels ill garlic Allergy (Verified 02/20/23 07:12) sore throat, feels ill onion Allergy (Verified 02/20/23 07:12) sore throat, feels ill Penicillins Allergy (Verified 04/28/24 09:39) Hives lisinopril Adverse Reaction (Verified 02/20/23 07:12) Cough Medications ???Medication ???Instructions ???Recorded ???Confirmed ???Type amlodipine 10 mg tablet 10 mg PO DAILY 08/14/19 04/28/24 H istory metoprolol succinate 50 mg 50 mg PO DAILY 01/04/23 04/28/24 H istory tablet,extended release 24 hr pantoprazole 40 mg tablet,delayed 40 mg PO DAILY 01/04/23 04/28/24 History release doxycycline hyclate 100 mg capsule 100 mg PO BID 7 days #14 caps 04/28/24 Rx Nurse's Note: Patient has a cough, drainage and sinus pressure, and his chest is tight. Patient states he has a non productive cough. Patient saw his PCP 2 weeks ago, and was told viral. 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 Social History (Updated 01/04/23 @ 09:57 by Lanie Pickard) adopted: Yes household members: spouse current occupational status: employed Smoking Status: Former smoker HPI HPI Details: SANGEETHA CHRISTOPHER, is a 53 M who presents to the office today for concerns regarding new cough. He states over the last 2 weeks he has been having drainage, sinus pressure, and chest tightness. He was seen with primary care provided with recommendation to continue to observe. Now that he has a new cough and ongoing symptoms, he presents for evaluation. ROS Const Constitutional: Positive for body ache, chills, abnormal sleep pattern (cough) and change in appetite (reduce food intake); No fatigue, fever(s), headache(s) or snoring Eyes Eyes: No blurry vision, change in vision, double vision, irritation, discharge, vision loss, dry eyes, bulging eyes, floaters, visual disturbances, eye pain, Light sensitivity, spots in vision, tunnel vision or other ENT ENT: Positive for nasal congestion, sinus pressure (worse when bending forward), sinus pain, nasal discharge, post nasal drip, hoarseness and sore throat; No abnormal hearing, ear or mastoid pain, ear discharge, ear pressure, hearing loss, tinnitus, dizziness/vertigo, balance problems, nosebleed/epistaxis, nose pain, headache(s), facial pain, dental pain, difficulty swallowing, bad breath, lip swelling, mouth lesions, mouth pain, neck pain, tongue swelling or throat swelling Resp Respiratory: Positive for cough (very little) Cough: Yes productive; No change in phlegm color, chest congestion, hemoptysis, pain on inspiration, shortness of breath, pain with cough, snoring, stridor or wheezing Cardio Cardiology: Positive for chest pain at rest Symptoms: Tightness; No chest pain with exertion, shortness of breath, dyspnea on exertion or lightheadedness Gastro GI: No abdominal pain, change in bowel habits, constipation, diarrhea, difficulty swallowing, loose stools, nausea/dyspepsia or vomiting Genitourinary Male: No burning urination or urinary frequency Musc Musculoskeletal: No joint pain or neck pain Skin Skin: No rash Neuro Neurology: No abnormal hearing, headache(s) or visual disturbances Psych Psychiatric: Positive for abnormal sleep pattern (cough) and Positive for change in appetite (reduce food intake) Endo Endocrine: No fatigue Aller/Imm Allergy/Immunologic: No lip swelling, throat swelling, tongue swelling or wheezing Exam Const General: cooperative, healthy appearing, comfortable and no acute distress Orientation: alert, awak (more content not included)... Normal [facility] Lipid Profileon 01-08-2024 Cholesterol [Mass/Vol] 181 mg/dL Normal 200 [facility] Comment on above: Result Comment: <200 mg/dL Desirable 200-240 mg/dL Borderline >240 mg/dL High Risk Performed By: #### L 501.9910, L500.4100 #### [facility] [address] [place], [place], [id number] Cholesterol in HDL [Mass/Vol] 26 mg/dL Low [facility] Comment on above: Result Comment: The drugs N-Acetylcysteine and Metamizole may falsely depress this assay. Reference Range HDL <40 mg/dL Low HDL Cholesterol HDL >or= 60 mg/dL High HDL Cholesterol Performed By: #### L 501.9910, L500.4100 #### [facility] [address] [place], [place], [id number] Cholesterol in LDL [Mass/Vol] 114 mg/dL Normal 0-130 [facility] Comment on above: Performed By: #### L 501.9910, L500.4100 #### [facility] [address] [place], [address] Cholesterol in VLDL [Mass/Vol] 41 mg/dL High 5-40 [facility] Comment on above: Performed By: #### L 501.9910, L500.4100 #### [facility] [address] [place], [address] Triglyceride [Mass/Vol] 207 mg/dL High [facility] Comment on above: Result Comment: The drugs N-Acetylcysteine and Metamizole may falsely depress this assay. Serum Triglycerides Reference Interval Normal <150 mg/dL Borderline high 150 - 199 mg/dL High 200 - 499 mg/dL Very High > or = 500 mg/dL Performed By: #### L 501.9910, L500.4100 #### [facility] [address] [place], [address] PSA,Total - Annual Screenon 01-08-2024 PSA,TOT SCREEN 0.87 ng/mL Normal 0.00-4.00 [facility] Comment on above: Result Comment: This test was performed using the TPSA assay method for the Framed [employer] chemistry system. Values obtained with different assay methods cannot be used interchangably. When changing PSA assays in the course of monitoring a patient, additional sequential testing should be carried out to confirm baseline values. Performed By: #### L 501.9910, L500.4100 #### [facility] [address] [place], [address] 12 Lead EKGon 12-07-2023 12 Lead EKG [facility] [address] [place] [address] 12 Lead EKG 12/07/23 1157 MR#: [id number] Acct: [id number] Name: SANGEETHA CHRISTOPHER Rep #: [id number] : 1970 53 From: Dylon Huffman MD Attending Dr: JORY Ramirez Status: REG CLI Ordering Dr: Caren Kevin Date: 12/07/23 Location: [facility] Sex: M C Admitted: Test Reason : PREOP Blood Pressure : */* mmHG Vent. Rate : 80 BPM Atrial Rate : 80 BPM P-R Int : 158 ms QRS Dur : 78 ms QT Int : 356 ms P-R-T Axes : 41 56 27 degrees QTcB Int : 410 ms Normal sinus rhythm Normal ECG Confirmed by KEVIN JEAN, DYLON ([id number]), research editor TEODORO WEST ([id number]) on 12/08/2023 11:11:11 AM Referred By: Caren Kevin Confirmed By: DYLON HUFFMAN MD 12/08/23 1111 Date Dylon Huffman MD CC: Dr. Juliocesar Brownlee, ; JORY Ramirez Signed Normal [facility] Basic Metabolic Profile (BMP )on 12-04-2023 BUN/CRE 15.5 RATIO Normal 10-20 [facility] Comment on above: Performed By: #### L 500.2500, L100.0100 #### [facility] [address] [facility] [place], [address] CA,Total 9.1 mg/dL Normal 8.5-10.1 [facility] Comment on above: Performed By: #### L 500.2500, L100.0100 #### [facility] [address] [place], [address] Chloride [Moles/Vol] 108 mmol/L High 98-107 [facility] Comment on above: Performed By: #### L 500.2500, L100.0100 #### [facility] [address] [place], [address] CO2 [Moles/Vol] 30.0 mmol/L Normal 21.0-32.0 [facility] Comment on above: Performed By: #### L 500.2500, L100.0100 #### [facility] [address] [place], [address] Creatinine [Mass/Vol] 1.03 mg/dL Normal 0.70-1.30 [facility] Comment on above: Result Comment: The validity of the calculated GFR GFRAA in patients over 70 years has not been determined. Clinical correlation is essential. Performed By: #### L 500.2500, L100.0100 #### [facility] [address] [place], [address] EST GFR - AA 97 mL/min Normal >60 [facility] Comment on above: Result Comment: Afri can Armenian GFR Calc Performed By: #### L 500.2500, L100.0100 #### [facility] [address] [place], [address] GAP 0 Low 5-15 [facility] Comment on above: Performed By: #### L 500.2500, L100.0100 #### [facility] [address] [place], [address] GFR/1.73 sq M.predicted among non-blacks MDRD (S/P/Bld) [Vol rate/Area] 80 mL/min/{1.73_m2} Normal >60 [facility] Comment on above: Result Comment: Non- GFR Calc Performed By: #### L 500.2500, L100.0100 #### [facility] [address] [place], [address] Glucose [Mass/Vol] 103 mg/dL Normal 74-106 [facility] Comment on above: Result Comment: Fast ing Glucose result from 100 to 125 mg/dL suggests IMPAIRED HOMEOSTASIS per A.D.A. criteria. Performed By: #### L 500.2500, L100.0100 #### [facility] [address] [place], [address] Potassium [Moles/Vol] 4.7 mmol/L Normal 3.5-5.1 [facility] Comment on above: Performed By: #### L 500.2500, L100.0100 #### [facility] [address] [place], [address] Sodium [Moles/Vol] 139 mmol/L Normal 136-145 [facility] Comment on above: Performed By: #### L 500.2500, L100.0100 #### [facility] [address] [place], [address] Urea nitrogen [Mass/Vol] 16 mg/dL Normal 7-18 [facility] Comment on above: Performed By: #### L 500.2500, L100.0100 #### [facility] [address] [place], [address] CBC W/Diff, Automatedon 10-2 Absolute Lymph 2.22 X10 3/uL Normal 0.83-4.51 [facility] Comment on above: Performed By: #### L 500.2500, L100.0100 #### [facility] [address] [place], [address] Absolute Neut 5.3 X10 3/uL Normal 2.0-7.7 [facility] Comment on above: Performed By: #### L 500.2500, L100.0100 #### [facility] [address] [place], [address] Basophils/100 WBC (Bld) 1.2 % High 0-1 [facility] Comment on above: Performed By: #### L 500.2500, L100.0100 #### [facility] [address] [place], [address] Eosinophils/100 WBC (Bld) 3.7 % Normal 0-5 [facility] Comment on above: Performed By: #### L 500.2500, L100.0100 #### [facility] [address] [place], [address] Erythrocyte distribution width (RBC) [Ratio] 13.4 % Normal 11.6-14.6 [facility] Comment on above: Performed By: #### L 500.2500, L100.0100 #### [facility] [address] [place], [address] Hematocrit (Bld) [Volume fraction] 46.4 % Normal 40-54 [facility] Comment on above: Performed By: #### L 500.2500, L100.0100 #### [facility] [address] [place], [address] Hemoglobin (Bld) [Mass/Vol] 15.7 g/dL Normal 13.0-16.5 [facility] Comment on above: Performed By: #### L 500.2500, L100.0100 #### [facility] [address] [place], [address] IG% 0.500 Normal 0.0-0.9 [facility] Comment on above: Result Comment: IG% - Immature Granulocytes (promyelocytes, myelocytes and metamyelocytes) > 1% indicates that a LEFT SHIFT is Present. Performed By: #### L 500.2500, L100.0100 #### [facility] [address] [place], [address] Lymphocytes/100 WBC (Bld) 25.7 % Normal 19-41 [facility] Comment on above: Performed By: #### L 500.2500, L100.0100 #### [facility] [address] [place], [address] MCH (RBC) [Entitic mass] 30.0 pg Normal 27.0-32.0 [facility] Comment on above: Performed By: #### L 500.2500, L100.0100 #### [facility] [address] [place], [address] MCHC (RBC) [Mass/Vol] 33.8 g/dL Normal 32-36 [facility] Comment on above: Performed By: #### L 500.2500, L100.0100 #### [facility] [address] [place], [address] MCV (RBC) [Entitic vol] 88.7 fL Normal 80-94 [facility] Comment on above: Performed By: #### L 500.2500, L100.0100 #### [facility] [address] [place], [address] Monocytes/100 WBC (Bld) 8.2 % Normal 0-10 [facility] Comment on above: Performed By: #### L 500.2500, L100.0100 #### [facility] [address] [place], [address] Neutrophils/100 WBC (Bld) 60.7 % Normal 47-70 [facility] Comment on above: Performed By: #### L 500.2500, L100.0100 #### [facility] [address] [place], [address] Nucleated RBC (Bld) [#/Vol] 0 10*3/uL Normal 0-5 [facility] Comment on above: Performed By: #### L 500.2500, L100.0100 #### [facility] [address] [place], [address] Platelet mean volume (Bld) [Entitic vol] 9.2 fL Normal 6.2-12.0 [facility] Comment on above: Performed By: #### L 500.2500, L100.0100 #### [facility] [address] [place], [address] Platelets (Bld) [#/Vol] 306 10*3/uL Normal 150-450 [facility] Comment on above: Performed By: #### L 500.2500, L100.0100 #### [facility] [address] [place], [address] RBC (Bld) [#/Vol] 5.23 10*6/uL Normal 4.6-6.2 [facility] Comment on above: Performed By: #### L 500.2500, L100.0100 #### [facility] [address] [place], [address] RDW SD 43.4 fl Normal 35.1-43.9 [facility] Comment on above: Performed By: #### L 500.2500, L100.0100 #### [facility] [address] [place], [address] WBC (Bld) [#/Vol] 8.7 10*3/uL Normal 4.4-11.0 [facility] Comment on above: Performed By: #### L 500.2500, L100.0100 #### [facility] [address] [place], [address] Absolute lymphocyte countOrd ered By: Paty Pinedagar on 02-01-2023 Lymphocytes Auto (Unsp spec) [#/Vol] 2.54 10*3/uL 0.83-4.51 [facility] Basophil percentageOrdered B y: Paty Rosa on 02-01-2023 Basophils/100 WBC (Bld) 1.2 % 0-1 [facility] Bilirubin [Mass/Vol] 0.70 mg/dL 0.20-1.00 [facility] Comment on above: For patients on eltr ombopag therapy, use of Dimension [place] TBIL is not recommended. Chloride [Moles/Vol] 109 mmol/L 98-107 [facility] Cholesterol [Mass/Vol] 169 mg/dL <200 [facility] Comment on above: <200 mg/dL Desirable 200-240 mg/dL Borderline >240 mg/dL High Risk Eosinophils/100 WBC (Bld) 4.6 % 0-5 [facility] Glucose [Mass/Vol] 111 mg/dL 74-106 [facility] Comment on above: Fasting Glucose resu lt from 100 to 125 mg/dL suggests IMPAIRED HOMEOSTASIS per A.D.A. criteria. Neutrophils (Bld) [#/Vol] 4.9 10*3/uL 2.0-7.7 [facility] Neutrophils/100 WBC (Bld) 57.3 % 47-70 [facility] Potassium [Moles/Vol] 4.1 mmol/L 3.5-5.1 [facility] Protein [Mass/Vol] 6.7 g/dL 6.4-8.2 [facility] Sodium [Moles/Vol] 140 mmol/L 136-145 [facility] Triglyceride [Mass/Vol] 110 mg/dL <199 [facility] Comment on above: The drugs N-Acetylcy steine and Metamizole may falsely depress this assay.Serum Triglycerides Reference Interval Normal <150 mg/dL Borderline high 150 - 199 mg/dL High 200 - 499 mg/dL Very High > or = 500 mg/dL WBC (Bld) [#/Vol] 8.6 10*3/uL 4.4-11.0 [facility] Blood erythrocytes count (nu mber/volume)Ordered By: Paty Rosa on 02-01-2023 RBC (Bld) [#/Vol] 5.21 10*6/uL 4.6-6.2 [facility] Blood hemoglobin measurement (mass/volume)Ordered By: Paty Rosa on 02-01-2023 Hemoglobin (Bld) [Mass/Vol] 15.2 g/dL 13.0-16.5 [facility] Blood lymphocytes/100 leukoc ytesOrdered By: Paty Rosa on 02-01-2023 Lymphocytes/100 WBC (Bld) 29.5 % 19-41 [facility] Blood monocytes/100 leukocyt esOrdered By: Paty Rosa on 02-01-2023 Monocytes/100 WBC (Bld) 7.1 % 0-10 [facility] Blood platelet mean volumeOr dered By: Paty Rosa on 02-01-2023 Platelet mean volume (Bld) [Entitic vol] 9.4 fL 6.2-12.0 [facility] Determination of erythrocyte mean corpuscular volume (MCV)Ordered By: Paty Rosa on 02-01-2023 MCV (RBC) [Entitic vol] 89.6 fL 80-94 [facility] Hematocrit Auto (Bld) [Volum e fraction]Ordered By: Paty Rosa on 02-01-2023 Hematocrit (Bld) [Volume fraction] 46.7 % 40-54 [facility] - Chemistry and C hemistry - challengeOrdered By: Paty Rosa on 02-01-2023 ALP [Catalytic activity/Vol] 116 U/L 45-117 [facility] ALT [Catalytic activity/Vol] 29 U/L 16-61 [facility] CO2 [Moles/Vol] 28.0 mmol/L 21.0-32.0 [facility] Globulin (S) [Mass/Vol] 3.2 g/dL 2.2-4.2 [facility] Urea nitrogen/Creatinine [Mass ratio] 18.3 mg/mg 10-20 [facility] - Hematology and Cell countsOrdered By: Paty Rosa on 02-01-2023 Erythrocyte distribution width (RBC) [Entitic vol] 44.1 fL 35.1-43.9 [facility] Erythrocyte distribution width (RBC) [Ratio] 13.4 % 11.6-14.6 [facility] Immature granulocytes/100 WBC (Bld) 0.300 % 0.0-0.9 [facility] Comment on above: IG% - Immature Granu locytes (promyelocytes, myelocytes and metamyelocytes) > 1% indicates that a LEFT SHIFT is Present. MCH (RBC) [Entitic mass] 29.2 pg 27.0-32.0 [facility] Nucleated RBC/100 WBC (Bld) [Ratio] 0 % 0-5 [facility] MCHC Auto (RBC) [Mass/Vol]Or dered By: Paty Rosa on 02-01-2023 MCHC (RBC) [Mass/Vol] 32.5 g/dL 32-36 [facility] No Panel InformationOrdered By: Paty Rosa on 02-01-2023 Estimated GFR (MDRD) Amer 91 mL/min >60 [facility] Comment on above: GFR Calc Estimated GFR (MDRD) Non-Af Amer 75 mL/min >60 [facility] Comment on above: Non- GFR Calc Prostate Specific Antigen Screen 1.00 ng/mL 0.00-4.00 [facility] Comment on above: This test was perfor med using the TPSA assay method for the[employer]amed Data chemistry system. Values obtained with differentassay methods cannot be used interchangably.When changing PSA assays in the course of monitoring apatient, additional sequential testing should be carriedout to confirm baseline values. Platelets bldOrdered By: Dorina Rosa on 02-01-2023 Platelets (Bld) [#/Vol] 309 10*3/uL 150-450 [facility] Serum or plasma albumin kasie urement (mass/volume)Ordered By: Paty Rosa on 02-01-2023 Albumin [Mass/Vol] 3.5 g/dL 3.2-5.0 [facility] Serum or plasma albumin/glob ulin mass ratioOrdered By: Paty Rosa on 02-01-2023 Albumin/Globulin [Mass ratio] 1.1 {ratio} 0.9-2.4 [facility] Serum or plasma calcium kasie urement (mass/volume)Ordered By: Paty Rosa on 02-01-2023 Calcium [Mass/Vol] 8.9 mg/dL 8.5-10.1 [facility] Serum or plasma cholesterol in HDL measurement (mass/volume)Ordered By: Paty Rosa on 02-01-2023 Cholesterol in HDL [Mass/Vol] 28 mg/dL >40 [facility] Comment on above: The drugs N-Acetylcy steine and Metamizole may falsely depress this assay. Reference Range HDL <40 mg/dL Low HDL Cholesterol HDL >or= 60 mg/dL High HDL Cholesterol Serum or plasma cholesterol in VLDL measurement (mass/volume)Ordered By: Paty Rosa on 02-01-2023 Cholesterol in VLDL [Mass/Vol] 22 mg/dL 5-40 [facility] Serum or plasma creatinine m easurement (mass/volume)Ordered By: Paty Rosa on 02-01-2023 Creatinine [Mass/Vol] 1.09 mg/dL 0.70-1.30 [facility] Comment on above: The validity of the calculated GFR & GFRAA in patients over 70 years has not been determined. Clinical correlation is essential. Serum or plasma low density lipoprotein (LDL) cholesterol measurement (mass/volume)Ordered By: Paty Rosa on 02-01-2023 Cholesterol in LDL [Mass/Vol] 119 mg/dL 0-130 [facility] Serum or plasma urea nitroge n measurement (mass/volume)Ordered By: Paty Rosa on 02-01-2023 Urea nitrogen [Mass/Vol] 20 mg/dL 7-18 [facility] Thin prep Papanicolaou smear with manual screeningOrdered By: Patysandy Rosa on 02-01-2023 Thin prep Papanicolaou smear with manual screening 14 U/L 15-37 [facility] Thin prep Papanicolaou smear with manual screening 3 5-15 [facility] Absolute lymphocyte counton 11-29-2021 Lymphocytes Auto (Unsp spec) [#/Vol] 1.99 10*3/uL 0.83-4.51 [facility] Work Phone: Basophil percentageon 2021 Basophils/100 WBC (Bld) 1.3 % 0-1 [facility] Work Phone: Bilirubin [Mass/Vol] 0.70 mg/dL 0.20-1.00 [facility] Work Phone: Comment on above: For patients on eltr ombopag therapy, use of Dimension [place] TBIL is not recommended. Chloride [Moles/Vol] 107 mmol/L 98-107 [facility] Work Phone: Cholesterol [Mass/Vol] 160 mg/dL <200 [facility] Work Phone: Comment on above: <200 mg/dL Desirable 200-240 mg/dL Borderline >240 mg/dL High Risk Eosinophils/100 WBC (Bld) 2.4 % 0-5 [facility] Work Phone: Glucose [Mass/Vol] 110 mg/dL 74-106 [facility] Work Phone: Comment on above: Fasting Glucose resu lt from 100 to 125 mg/dL suggests IMPAIRED HOMEOSTASIS per A.D.A. criteria. Neutrophils (Bld) [#/Vol] 4.6 10*3/uL 2.0-7.7 [facility] Work Phone: Neutrophils/100 WBC (Bld) 61.5 % 47-70 [facility] Work Phone: Potassium [Moles/Vol] 4.2 mmol/L 3.5-5.1 [facility] Work Phone: Protein [Mass/Vol] 6.9 g/dL 6.4-8.2 [facility] Work Phone: Sodium [Moles/Vol] 140 mmol/L 136-145 [facility] Work Phone: Triglyceride [Mass/Vol] 95 mg/dL <199 [facility] Work Phone: Comment on above: The drugs N-Acetylcy steine and Metamizole may falsely depress this assay.Serum Triglycerides Reference Interval Normal <150 mg/dL Borderline high 150 - 199 mg/dL High 200 - 499 mg/dL Very High > or = 500 mg/dL WBC (Bld) [#/Vol] 7.5 10*3/uL 4.4-11.0 [facility] Work Phone: Blood erythrocytes count (nu mber/volume)on 11-29-2021 RBC (Bld) [#/Vol] 5.31 10*6/uL 4.6-6.2 [facility] Work Phone: Blood hemoglobin measurement (mass/volume)on 11-29-2021 Hemoglobin (Bld) [Mass/Vol] 16.1 g/dL 13.0-16.5 [facility] Work Phone: Blood lymphocytes/100 leukoc yteson 11-29-2021 Lymphocytes/100 WBC (Bld) 26.5 % 19-41 [facility] Work Phone: Blood monocytes/100 leukocyt eson 11-29-2021 Monocytes/100 WBC (Bld) 8.0 % 0-10 [facility] Work Phone: Blood platelet mean volumeon 11-29-2021 Platelet mean volume (Bld) [Entitic vol] 9.1 fL 6.2-12.0 [facility] Work Phone: Determination of erythrocyte mean corpuscular volume (MCV)on 11-29-2021 MCV (RBC) [Entitic vol] 89.1 fL 80-94 [facility] Work Phone: Hematocrit Auto (Bld) [Volum e fraction]on 11-29-2021 Hematocrit (Bld) [Volume fraction] 47.3 % 40-54 [facility] Work Phone: Laboratory - Chemistry and C hemistry - challengeon 11-29-2021 ALP [Catalytic activity/Vol] 119 U/L 45-117 [facility] Work Phone: ALT [Catalytic activity/Vol] 35 U/L 16-61 [facility] Work Phone: CO2 [Moles/Vol] 29.0 mmol/L 21.0-32.0 [facility] Work Phone: Globulin (S) [Mass/Vol] 3.0 g/dL 2.2-4.2 [facility] Work Phone: Urea nitrogen/Creatinine [Mass ratio] 13.8 mg/mg 10-20 [facility] Work Phone: Laboratory - Hematology and Cell countson 11-29-2021 Erythrocyte distribution width (RBC) [Entitic vol] 43.1 fL 35.1-43.9 [facility] Work Phone: Erythrocyte distribution width (RBC) [Ratio] 13.2 % 11.6-14.6 [facility] Work Phone: Immature granulocytes/100 WBC (Bld) 0.300 % 0.0-0.9 [facility] Work Phone: Comment on above: IG% - Immature Granu locytes (promyelocytes, myelocytes and metamyelocytes) > 1% indicates that a LEFT SHIFT is Present. MCH (RBC) [Entitic mass] 30.3 pg 27.0-32.0 [facility] Work Phone: Nucleated RBC/100 WBC (Bld) [Ratio] 0 % 0-5 [facility] Work Phone: MCHC Auto (RBC) [Mass/Vol]on 11-29-2021 MCHC (RBC) [Mass/Vol] 34.0 g/dL 32-36 [facility] Work Phone: No Panel Informationon 11-29 Estimated GFR (MDRD) Amer 91 mL/min >60 [facility] Work Phone: Comment on above: GFR Calc Estimated GFR (MDRD) Non-Af Amer 75 mL/min >60 [facility] Work Phone: Comment on above: Non- GFR Calc Prostate Specific Antigen Screen 1.38 ng/mL 0.00-4.00 [facility] Work Phone: Comment on above: This test was perfor med using the TPSA assay method for [employer] chemistry system. Values obtained with differentassay methods cannot be used interchangably.When changing PSA assays in the course of monitoring apatient, additional sequential testing should be carriedout to confirm baseline values. Platelets bldon 11-29-2021 Platelets (Bld) [#/Vol] 306 10*3/uL 150-450 [facility] Work Phone: Serum or plasma albumin kasie urement (mass/volume)on 11-29-2021 Albumin [Mass/Vol] 3.9 g/dL 3.2-5.0 [facility] Work Phone: Serum or plasma albumin/glob ulin mass ratioon 11-29-2021 Albumin/Globulin [Mass ratio] 1.3 {ratio} 0.9-2.4 [facility] Work Phone: Serum or plasma calcium kasie urement (mass/volume)on 11-29-2021 Calcium [Mass/Vol] 8.7 mg/dL 8.5-10.1 [facility] Work Phone: Serum or plasma cholesterol in HDL measurement (mass/volume)on 11-29-2021 Cholesterol in HDL [Mass/Vol] 28 mg/dL >40 [facility] Work Phone: Comment on above: The drugs N-Acetylcy steine and Metamizole may falsely depress this assay. Reference Range HDL <40 mg/dL Low HDL Cholesterol HDL >or= 60 mg/dL High HDL Cholesterol Serum or plasma cholesterol in VLDL measurement (mass/volume)on 11-29-2021 Cholesterol in VLDL [Mass/Vol] 19 mg/dL 5-40 [facility] Work Phone: Serum or plasma creatinine m easurement (mass/volume)on 11-29-2021 Creatinine [Mass/Vol] 1.09 mg/dL 0.70-1.30 [facility] Work Phone: Comment on above: The validity of the calculated GFR & GFRAA in patients over 70 years has not been determined. Clinical correlation is essential. Serum or plasma low density lipoprotein (LDL) cholesterol measurement (mass/volume)on 11-29-2021 Cholesterol in LDL [Mass/Vol] 113 mg/dL 0-130 [facility] Work Phone: Serum or plasma urea nitroge n measurement (mass/volume)on 11-29-2021 Urea nitrogen [Mass/Vol] 15 mg/dL 7-18 [facility] Work Phone: Thin prep Papanicolaou smear with manual screeningon 11-29-2021 Thin prep Papanicolaou smear with manual screening 11 U/L 15-37 [facility] Work Phone: Thin prep Papanicolaou smear with manual screening 4 5-15 [facility] Work Phone: Whole blood hemoglobin A1c/t otal hemoglobin ratio (mass fraction)on 11-29-2021 HbA1c (Bld) [Mass fraction] 5.3 % 3.8-5.6 [facility] Work Phone: Comment on above: Normal < 5.7 % Predi abetic 5.7 - 6.4 % Diabetic >or= 6.5 % Please note range changes. XR FINGER 2ND DIGIT 3 VIEWS RIGHTon 03-30-2020 XR FINGER 2ND DIGIT 3 VIEWS RIGHT ORIGINAL XR XR FINGER 2ND DIGIT 3 VIEWS RIGHT, Clinical Statement: pain/injury, , trauma, pain Comparison: None Findings: There is no visualized acute fracture or dislocation. No radio-opaque foreign body or soft tissue gas is seen. IMPRESSION: No acute fracture seen. Interpreted By: Igor Ford MD Preliminary Report By: Igor Ford MD Electronically Signed By: Igor Ford MD Dictated Date: 03/30/2020 11:37:31 AM Prelim Date: 03/30/2020 11:37:31 AM Sign Date: 03/30/2020 11:38:00 AM Ordering Provider:Stefan Rodriguez [facility] ([place]) Vital Signs Date Time Vital Sign Value Performing Clinician Faci lity 02-20-2023 09:09-0500 Body temperature 97.3 [degF] Dr. Juliocesar Brownlee Work Phone: [facility] 02-20-2023 09:09-0500 Diastolic blood pressure 75 mm[Hg] Dr. Juliocesar Brownlee Work Phone: [facility] 02-20-2023 09:09-0500 Heart rate 61 /min Dr. Juliocesar Brownlee Work Phone: [facility] 02-20-2023 09:09-0500 Respiratory rate 18 /min Dr. Juliocesar Brownlee Work Phone: [facility] 02-20-2023 09:09-0500 SaO2% (BldA) [Mass fraction] 100 % Dr. Juliocesar Brownlee Work Phone: [facility] 02-20-2023 09:09-0500 Systolic blood pressure 105 mm[Hg] Dr. Juliocesar Brownlee Work Phone: [facility] 02-20-2023 07:14-0500 Body height 177.[address] Juliocesar Brownlee Work Phone: [facility] 02-20-2023 07:14-0500 Body mass index (BMI) [Ratio] 30.8 kg/m2 Dr. Juliocesar Brownlee Work Phone: [facility] 02-20-2023 07:14-0500 Body weight 97.[address] Juliocesar Brownlee Work Phone: [facility] 01-04-2023 09:57-0500 Body height 177.[address] Juliocesar Brownlee Work Phone: [facility] 01-04-2023 09:57-0500 Body mass index (BMI) [Ratio] 30.8 kg/m2 Dr. Juliocesar Brownlee Work Phone: [facility] 01-04-2023 09:57-0500 Body weight 97.[address] Juliocesar Browlnee Work Phone: [facility] Encounters Encounter Date Encounter Type Care Provider Facility Start: 04-28-2024 End: 04-28-2024 ambulatory Juliocesar Brown[place] [place] Start: 02-06-2024 Encounter for genera l adult medical examination without abnormal findings Jul[facility]ocesar [facility] Start: 01-18-2024 End: 01-18-2024 ambulatory Juliocesar Torrie Facility:[facility] Start: 01-08-2024 End: 01-08-2024 ambulatory Juliocesar Torrie Facility:[facility] Start: 12-28-2023 Encounter for other preprocedural examination Caren Kevin [facility] Start: 12-07-2023 End: 12-07-2023 ambulatory [facility]esar [facility] [place] [place] Start: 12-07-2023 End: 12-07-2023 ambulatory Juliocesar Torrie Facility:[facility] Start: 02-20-2023 Non-patient / Non-visit Dr. Laura Brownlee Work Phone: [facility] Start: 02-20-2023 End: 02-20-2023 Admission to same day surgery center Dr. Juliocesar Brownlee Work Phone: [facility] Work Phone: Start: 02-20-2023 End: 02-20-[address] Juliocesar Brownlee Work Phone: [facility] Work Phone: Start: 02-01-2023 End: 02-01-[address] Juliocesar Brownlee Work Phone: [facility] Work Phone: Start: 02-01-2023 End: 02-01-[address] Juliocesar Brownlee Work Phone: [facility], [facility] Work Phone: Start: 02-01-2023 End: 02-01-[address] Juliocesar Brownlee Work Phone: [facility] Work Phone: Start: 02-01-2023 End: 02-01-[address] Juliocesar Brownlee Work Phone: [facility] Work Phone: Start: 01-04-2023 Non-patient / Non-visit Dr. Laura Brownlee Work Phone: [facility] Work Phone: Start: 11-29-2021 End: 11-29-2021 ambulatory [facility] Work Phone: Start: 11-29-2021 End: 11-29-2021 Patient encounter procedure [facility] Procedures Date Procedure Procedure Detail Performing Clinician Start: 02-20-[address] Juliocesar gray Work Phone: Start: 02-01-[address] Juliocesar gray Work Phone: Plan of Treatment Date Care Activity Detail Author Start: 02-20-2023 Patient discharge [facility] Colonoscopy [facility] Patient referral [facility] Work Phone: Immunizations Immunization Date Immunization Notes Care Provider Fa cility 05-12-2020 Covid (Pfizer) [facility] 04-21-2020 Covid (Pfizer) [facility] Payers Date Payer Category Payer Self-pay [id number] 2016 Unknown [id number] Unknown [id number] [id number] [id number] Unknown [id number] [id number] [id number] Unknown [id number] [id number] [id number] Unknown [id number] [id number] Unknown [id number] 2.16.8 [id number] Social History Date Type Detail Facility Start: 08-14-2019 End: 02-20-2023 Tobacco smoking status NHIS Unknown if ever smoked [facility] Start: 1970 Sex Assigned At Male [facility] Goals Date Patient Goal Desired Activity /State Mental Status Date Assessment Result Facility 02-20-2023 Cognitive function Voice/Name [facility] Work Phone: History and physical note 02-20-2023 Note Date & Type Note Facility 02-20-2023 History and physi ashly note Note Date/Time February 20, 2023 7:20am [facility] Medical Records Department [address] [place] [address] History & Physical Exam 02/20/23 0718 MR#: [id number] Acct: [id number] Name: SANGEETHA CHRISTOPHER Rep #:[id number] : 1970 52 From: Emeli Diaz MD PCP: Dr. Juliocesar Brownlee, DO Status:[facility] Location: [place] [address] HPI - General General Date of Service: 02/20/23 HPI Narrative SANGEETHA CHRISTOPHER, is a 52 M who presents for surveillance colonoscopy due to history of colon polyps. Patient's last colonoscopy was 08/2019 patient had 3 polyps at that time. Patient has bowel movements daily denies any blood. Patient denies any chronic abdominal pain/nausea/vomiting/chronic abdominal pain. Patient denies any family history of colon cancer. [facility] Medical History (Updated 02/20/23 @ 07:[address] 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 Hx of colonic polyps Normal stress echocardiogram Wears glasses Home Medications amlodipine 10 mg tablet 10 mg PO DAILY 08/14/19 [History Last Taken 02/20/23] budesonide 3 mg capsule,delayed,extended release 6 mg PO DAILY 08/14/19 [History Last Taken Unknown] metoprolol succinate 50 mg tablet,extended release 24 hr 50 mg PO DAILY 01/04/23[History Last Taken 02/20/23] pantoprazole 40 mg tablet,delayed release 40 mg PO DAILY 01/04/23 [History Last Taken Unknown] Allergy/AdvReac Type Severity Reaction Status Date / Time animal dander Allergy sore Verified 02/20/23 07:12 throat, feels ill black pepper Allergy sore Verified 02/20/23 07:12 throat, feels ill garlic Allergy sore Verified 02/20/23 07:12 throat, feels ill onion Allergy sore Verified 02/20/23 07:12 throat, feels ill Penicillins Allergy Hives Verified 02/20/23 07:12 lisinopril AdvReac Cough Verified 02/20/23 07:12 Family History (Updated 01/04/23 @ 09:48 by Lanie Pickard) Unknown No problems noted. Surgical History (Updated 02/15/23 @ 15:41 by Felicia Allen) History of left knee surgery History of right knee surgery Hx of cholecystectomy Hx of colonoscopy Hx of shoulder surgery Hx of tonsillectomy Social History (Updated 01/04/23 @ 09:57 by Lanie Pickard) adopted: Yes household members: spouse current occupational status: employed Smoking Status: Former smoker Past Medical/Surgical History Planned Operation Planned Operative Procedure/s: COLONOSCOPY S.O.S: No Previous Hospitalizations/Surgeries HX Hospitalizations: No HX of Surgeries: tonsillectomy,vasectomy, cholecystectomy, R knee surgery, L knee surgery x3, L shoulder rotator cuff repair Any Problems With Anesthesia: No You/Your Family Experience Fever (Hyperthermia) With Anes: No Cholinesterase deficiency: No Cardiovascular Hx Chest Pain within Last 2 months: No Hx of Irregular Heartbeat and/or Afib: No Hx Heart Attack: No Hx Congestive Heart Failure: No Hx Rheumatic Fever: No Hx Hypertension: Yes (CONTROLLED ON MED) Hx Internal Defibrillator: No Hx Pacemaker: No Hx Cardiac Catheterization: Yes ([facility] 2016) What facility was last heart cath performed: - Date of last Heart Cath: - Hx Cardiac Surgery/Stents/Etc.: No Hx Stress Test: No Hx Pain in Legs when Walking/Leg Cramps: No Respiratory Chronic Cough: No HX of Shortness of Breath: No Hoarseness: No Hx Chronic Obstructive Pulmonary Disease (COPD): No Hx Asthma: No Hx Emphysema: No Hx Sleep Apnea: No Hx Respiratory Tract Infection/Cold (presently): No Do You Snore Loudly (louder than talking or can be heard): No Do You Often Feel Tired/ Fatigued/ Sleepy Dring Daytime?: No Has Anyone Observed You Stop Breathing During Sleep?: No Result (for STOP score): Negative Hx Smoking: Yes Smoking Status: Former smoker Gastrointestinal Controlled With Meds: Yes (PEPCID) Hx Gastrointestinal Disorders: No Hx Gastrointestinal Bleed: No Hx Ulcer: No Hx Hiatal Hernia: No Difficulty Chewing/Swallowing: No Special diet followed at home: No Hx Unplanned Weight Loss of 20#: No HX Unplanned Weight Gain of 20#: No Neurological Hx Seizures: No HX Syncope/Blackout Spells/Unconsciousness: No Hx Transient Ischemic Attacks (TIA): No Hx Multiple Sclerosis: No Hx Parkinson's Disease: No Hx Head/Neck Injury: No Hx Headaches: No Hx Back Injury/Pain: No Recent Onset of Speech Difficulty: No Restless Legs: No Does patient have nerve stimulator: No Blood Disorder Hx Leukemia: No Bleeding Tendencies: No Hx Deep Vein Thrombosis: No Hx High Cholesterol: No Blood Transmitted Disease: No Hx Hepatitis: No Hx Cirrhosis: No Hx Anemia: No Hx Blood Disorders: No Genitourinary Hx Renal Disease: No Hx Dialysis: No Musculoskeletal Hx Arthritis: Yes (GENERALIZED) Hx Rheumatoid Arthritis: No Hx Gout: No Recent Onset of an Orthopedic Problem: No Endocrine Hx Diabetes: No Thyroid Disease: No Hx Steroid Therapy: No Psycho/Social Hx Substance Use: No Hx Alcohol Use: No Hx Anxiety: No Hx Depression: No Mental Illness: No Hx Dementia: No Miscellaneous Hx Cancer: No Recent Exposure to Contagious Disease: No Hx of C-Diff: No Any Loose Teeth: No (PARTIAL UPPER) Allergies animal dander Allergy (Verified 02/20/23 07:12) sore throat, feels ill black pepper Allergy (Verified 02/20/23 07:12) sore throat, feels ill garlic Allergy (Verified 02/20/23 07:12) sore throat, feels ill onion Allergy (Verified 02/20/23 07:12) sore throat, feels ill Penicillins Allergy (Verified 02/20/23 07:12) Hives lisinopril Adverse Reaction (Verified 02/20/23 07:12) Cough Discharge Is Pt Admitted From a Alf, or a Penitentiary: No After D/C, Where Do you Plan to Go: Return Home Physical Exam Const alert, oriented x3 and no apparent distress HEENT normocephalic and head/scalp atraumatic Resp normal respiratory effort Cardio regular rate GI soft to palpation and non-tender; Negative for non-distended Palpation: Negative for guarding Extremity no clubbing, cyanosis or edema Skin no rashes or lesions noted Neuro CN's II-XII intact bilaterally Psych mental status grossly normal Assessment & Plan Assessment/Plan (1) Hx of colonic polyps: Surgery Risks - Colonoscopy I discussed with the patient the risks of the procedure: Yes Risks Include but are not Limited To: Risks include but are not limited to: Bleeding, perforation requiring further surgery, inability to complete colonoscopy requiring barium enema. 02/20/23 075 <Electronically signed by Emeli Diaz MD> Cosigner Signature (if applicable): CC: Dr. Juliocesar Brownlee, DO; Dr. Emeli Diaz MD~ Signed [facility] Work Phone: Procedure note 02-20-2023 Note Date & Type Note Facility 02-20-2023 Procedure note [facility] Procedure note 02-20-2023 Note Date & Type Note Facility 02-20-2023 Procedure note [facility] Evaluation note Note Date & Type Note Facility Evaluation note No assessment information availa ble [facility] Work Phone: Evaluation note Note Date & Type Note Facility Evaluation note Diagnosis Onset Date Hx of colonic polyps acute [facility] Work Phone: Summary Purpose Family History No Family History Records FoundNo Family History Records Found Advance Directives No Advanced Directives Records Found Advance Directive Response Recorded Date/ Time Living Will Yes August 14, 2019 9 :34am Power of Crib Pad Maker Yes August 14, 2019 9:34am Advance Directive Response Recorded Date/ Time Living Will Yes August 14, 2019 8 :34am Power of Crib Pad Maker Yes August 14, 2019 8:34am Advance Directive Response Recorded Date/ Time Name of Medical Power of Crib Pad Maker MARK HOPKINS ART February 15, 2023 3:41pm Living Will Yes February 15 3:41pm Power of Crib Pad Maker Yes February 15, 2023 3:41pm Chief Complaint and Reason for Visit Chief Complaint Amb Documentation NICOTINE ABUSE Chief Complaint Amb Documentation NICOTINE ABUSE Reason for Visit Hx of colonic polyps Additional Source Comments (unrecognized sect ion and content) No Status Records FoundNo Status Records Found INFORMATION SOURCE (unrecogn ized section and content) DATE CREATED AUTHOR 06/09/2020 [facility] ([place]) DATE CREATED AUTHOR AUTHOR'S ORGANIZ ATION 04/28/2024 [facility] Goals (unrecognized section and content) Goals may be documented in a n alternate sectionGoals may be documented in an alternate sectionGoals may be documented in an alternate section Care Teams (unrecognized sec tion and content) Team Status: Active Member Role Status Dates Dr. Juliocesar Brownlee DO Family Provider Active Dr. Juliocesar Brownlee DO Primary Care Provider Active Team Status: Active Member Role Status Dates Dr. Juliocesar Brownlee DO Primary Care Provider Active Lanie Pickard Attending Provider Active Team Status: Active Member Role Status Dates Dr. Juliocesar Brownlee DO Primary Care Provider Active ROMI David Attending Provider, Referring Prov ider Active Team Status: Inactive Member Role Status Dates Dr. Juliocesar Brownlee DO Primary Care Provider Active ROMI David Attending Provider, Referring Prov ider Active Team Status: Active Member Role Status Dates Dr. Juliocesar Brownlee DO Primary Care Provider, Jania g Provider Active Dr. Emeli Diaz MD Attending Provider, Other Pro vider Active Team Status: Inactive Member Role Status Dates Dr. Juliocesar Brownlee DO Primary Care Provider, Referrin g Provider Active Dr. Emeli Diaz MD Attending Provider Active FOR RECORDS PERTAINING TO PATIENTS WHO ARE [...] BE BASED ON THE PRIMARY CLINICAL RECORDS. [facility] [employer] [facility]. provides no warranty or guarantee of the accuracy or completeness of information in this document.
[2025-01-10 17:55] LABS: Hematocrit 43.8 % (40-54); Hemoglobin 14.7 g/dL (13.0-16.5); Immature Granulocytes Count 0.040 X10^3/uL (0.0-0.0); Mean Corp Hgb Conc 33.6 g/dL (32-36); Mean Corpuscular Volume 89.8 fL (80-94); Mean Platelet Vol. 9.5 fl (6.2-12.0); NRBC Flagged by Analyzer 0 % (0-5); Platelet Count 337 K/mm3 (150-450); RBC Distribution Width CV 13.2 % (11.6-14.6); RBC Distribution Width SD 43.3 fl (35.1-43.9); Red Blood Count 4.88 M/mm3 (4.6-6.2); White Blood Count 11.1 K/mm3 (4.4-11.0)
[2025-01-10 18:10] LABS: AST(SGOT) 23 U/L (<=37); Alanine Aminotransfer ALT/SGPT 36 U/L (<=46); Albumin, Serum 4.3 g/dL (3.5-5.0); Alkaline Phosphatase 127 U/L (40-129); Anion Gap 11 (5-15); BUN 18 mg/dL (4-19); BUN/Creat Ratio 15.4 RATIO (10-20); Calcium,Total 9.1 mg/dL (7.6-11.0); Carbon Dioxide 25.9 mmol/L (21.0-32.0); Chloride 104 mmol/L (98-108); Globulin 2.4 g/dL (2.2-4.2); Glucose 101 mg/dL (70-99); PSA,Total - Annual Screen 0.83 ng/mL (0.02-4.00); Potassium 4.3 mmol/L (3.3-5.1)
[2025-01-10 19:10] LABS: Cholesterol 173 mg/dL (<=200); Low Density Lipoprotein Calc. 112 mg/dL; Triglycerides 204 mg/dL; Very Low Density Lipoprotein 41 mg/dL (5-40); cholesterol:hdl ratio screen 6.89
== END | disposition home or self-care (01) ==
LOC: BFHLAB 15:56
PROVIDERS: PCP Family Medicine; Visit Provider Family Medicine
DX: Z00.00 Encounter for general adult medical examination without abnormal findings (principal); Z12.5 Encounter for screening for malignant neoplasm of prostate
CPT/HCPCS: 36415; 80053; 80061; 84153; 85025; G0103

== ENCOUNTER → 2025-01-29 | Outpatient (CLI) | payer BC, SELFPAY ==
--- OUTSIDE RECORDS SUMMARY | 2025-01-29 07:13 | XMS RPT_ITS | CCD ---
Author Organization [facility] Inform ion Partnership [facility] Care Team Providers Care Jailor Name Role Phone Dr. Juliocesar Brownlee Primary Care Provider [phone] Lanie Pickard Attending Provider Unavailable Dr. Juliocesar [...] sources) Penicillins Allergy to substance 0 Hives [facility] (3 sources) Black Pepper Preparation Drug Allergy 3 sore throat, feels ill [facility] (3 sources) Garlic preparation Drug Allergy 3 sore throat, feels ill [facility] (3 sources) Lisinopril Drug Allergy 3 Cough [facility] (3 sources) Onion extract Drug Allergy 3 sore throat, feels ill [facility] (4 sources) animal dander; Translations: [animal dander] Allergy to substance 3 sore throat, feels ill [facility] (1 source) Black Pepper Preparation Drug Allergy 4 [facility] (1 source) Garlic preparation Drug Allergy 4 [facility] (1 source) Lisinopril Drug Allergy 4 [facility] (1 source) Onion extract Drug Allergy 4 [facility] (1 source) Penicillins Drug allergy (disorder) 5 [facility] Medications Current Medications Medication Drug Class(es) [...] Reporton 0 04-28-2024 Urgent Care Visit Report [facility] [address], [address] [place] [address] OFFICE VISIT Date of Service: 04/28/24 MR#: [id number] Acct: [id number] Name: SANGEETHA CHRISTOPHER Rep #: [id number] : 1970 Provider: ROMI moctezuma Age/Sex: 53/M Location: [facility] Status: Signed Intake Vital Signs 02/20/23 07:14 [...] 2 weeks ago, and was told viral. 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 Normal [facility] Lipid Profileon 01-08-2024 Cholesterol [Mass/Vol] 181 mg/dL Normal 200 [facility] Comment on above: Result Comment: <200 mg/dL Desirable 200-240 mg/dL Borderline >240 mg/dL High Risk Performed By: #### L 501.9910, L500.4100 #### [facility] [address] [place], [place], [id number] Cholesterol in HDL [Mass/Vol] 26 mg/dL Low [facility] Comment on above: Result Comment: The drugs N-Acetylcysteine and Metamizole may falsely depress this assay. Reference Range HDL <40 mg/dL Low HDL Cholesterol HDL >or= 60 mg/dL High HDL Cholesterol Performed By: #### L 501.9910, L500.4100 #### [facility] [address] [place], [place], [id number] Cholesterol in LDL [Mass/Vol] 114 mg/dL Normal 0-130 [facility] Comment on above: Performed By: #### L 501.9910, L500.4100 #### [facility] [address] [place], [address] Cholesterol in VLDL [Mass/Vol] 41 mg/dL High 5-40 [facility] Comment on above: Performed By: #### L 501.9910, L500.4100 #### [facility] [address] [place], [address] Triglyceride [Mass/Vol] 207 mg/dL High [facility] Comment on above: Result Comment: The drugs N-Acetylcysteine and Metamizole may falsely depress this assay. Serum Triglycerides Reference Interval Normal <150 mg/dL Borderline high 150 - 199 mg/dL High 200 - 499 mg/dL Very High > or = 500 mg/dL Performed By: #### L 501.9910, L500.4100 #### [facility] [address] [place], [address] PSA,Total - Annual Screenon 01-08-2024 PSA,TOT SCREEN 0.87 ng/mL Normal 0.00-4.00 [facility] Comment on above: Result Comment: This test was performed using the TPSA assay method for the HipWay chemistry system. Values obtained with different assay methods cannot be used interchangably. When changing PSA assays in the course of monitoring a patient, additional sequential testing should be carried out to confirm baseline values. Performed By: #### L 501.9910, L500.4100 #### [facility] [address] [facility] [place], [address] 12 Lead EKGon 12-07-2023 12 Lead EKG [facility] [address] [place] [address] 12 Lead EKG 12/07/23 1157 MR#: [id number] Acct: [id number] Name: SANGEETHA CHRISTOPHER Rep #: [id number] : 1970 53 From: Dylon Huffman MD Attending Dr: JORY Ramirez Status: REG CLI Ordering Dr: Caren Kevin Date: 12/07/23 Location: [facility] Sex: M C Admitted: Test Reason : PREOP Blood Pressure : */* mmHG Vent. Rate : 80 BPM Atrial Rate : 80 BPM P-R Int : 158 ms QRS Dur : 78 ms QT Int : 356 ms P-R-T Axes : 41 56 27 degrees QTcB Int : 410 ms Normal sinus rhythm Normal ECG Confirmed by KEVIN JEAN, DYLON ([id number]), open developer operator TEODORO WEST ([id number]) on 12/08/2023 11:11:11 AM Referred By: Caren Kevin Confirmed By: DYLON HUFFMAN MD 12/08/23 1111 Date yDlon Huffman MD CC: Dr. Juliocesar Brownlee, ; JORY Ramirez Signed Normal [facility] Basic Metabolic Profile (BMP )on 12-04-2023 BUN/CRE 15.5 RATIO Normal 10-20 [facility] Comment on above: Performed By: #### L 500.2500, L100.0100 #### [facility] [address] [place], [address] CA,Total 9.1 mg/dL Normal 8.5-10.1 [facility] Comment on above: Performed By: #### L 500.2500, L100.0100 #### [facility] [address] [place], [address] Chloride [Moles/Vol] 108 mmol/L High 98-107 [facility] Comment on above: Performed By: #### L 500.2500, L100.0100 #### [facility] [address] [place], [address] CO2 [Moles/Vol] 30.0 mmol/L Normal 21.0-32.0 [facility] Comment on above: Performed By: #### L 500.2500, L100.0100 #### [facility] [address] [place], [address] Creatinine [Mass/Vol] 1.03 mg/dL Normal 0.70-1.[address] [facility] Comment on above: Result Comment: The validity of the calculated GFR GFRAA in patients over 70 years has not been determined. Clinical correlation is essential. Performed By: #### L 500.2500, L100.0100 #### [facility] [address] [place], [address] EST GFR - AA 97 mL/min Normal >60 [facility] Comment on above: Result Comment: Afri can Croatian GFR Calc Performed By: #### L 500.2500, L100.0100 #### [facility] [address] [place], [address] GAP 0 Low 5-15 [facility] Comment on above: Performed By: #### L 500.2500, L100.0100 #### [facility] [address] [place], [address] GFR/1.73 sq M.predicted among non-blacks MDRD (S/P/Bld) [Vol rate/Area] 80 mL/min/{1.73_m2} Normal >60 [facility] Comment on above: Result Comment: Non- GFR Calc Performed By: #### L 500.2500, L100.0100 #### [facility] [address] [place], [address] Glucose [Mass/Vol] 103 mg/dL Normal 74-106 [facility] Comment on above: Result Comment: Fast ing Glucose result from 100 to 125 mg/dL suggests IMPAIRED HOMEOSTASIS per A.D.A. criteria. Performed By: #### L 500.2500, L100.0100 #### [facility] [address] [place], [address] Potassium [Moles/Vol] 4.7 mmol/L Normal 3.5-5.[address] [facility] Comment on above: Performed By: #### L 500.2500, L100.0100 #### [facility] [address] [place], [address] Sodium [Moles/Vol] 139 mmol/L Normal 136-145 [facility] Comment on above: Performed By: #### L 500.2500, L100.0100 #### [facility] [address] [place], [address] Urea nitrogen [Mass/Vol] 16 mg/dL Normal 7-18 [facility] Comment on above: Performed By: #### L 500.2500, L100.0100 #### [facility] [address] [place], [address] CBC W/Diff, Automatedon 10-2 Absolute Lymph 2.22 X10 3/uL Normal 0.83-4.51 [facility] Comment on above: Performed By: #### L 500.2500, L100.0100 #### [facility] [address] [place], [address] Absolute Neut 5.3 X10 3/uL Normal 2.0-7.7 [facility] Comment on above: Performed By: #### L 500.2500, L100.0100 #### [facility] [address] [place], [address] Basophils/100 WBC (Bld) 1.2 % High 0-1 [facility] Comment on above: Performed By: #### L 500.2500, L100.0100 #### [facility] [address] [place], [address] Eosinophils/100 WBC (Bld) 3.7 % Normal 0-5 [facility] Comment on above: Performed By: #### L 500.2500, L100.0100 #### [facility] [address] [place], [address] Erythrocyte distribution width (RBC) [Ratio] 13.4 % Normal 11.6-14.6 [facility] Comment on above: Performed By: #### L 500.2500, L100.0100 #### [facility] [address] [place], [address] Hematocrit (Bld) [Volume fraction] 46.4 % Normal 40-54 [facility] Comment on above: Performed By: #### L 500.2500, L100.0100 #### [facility] [address] [place], [address] Hemoglobin (Bld) [Mass/Vol] 15.7 g/dL Normal 13.0-16.5 [facility] Comment on above: Performed By: #### L 500.2500, L100.0100 #### [facility] [address] [place], [address] IG% 0.500 Normal 0.0-0.9 [facility] Comment on above: Result Comment: IG% - Immature Granulocytes (promyelocytes, myelocytes and metamyelocytes) > 1% indicates that a LEFT SHIFT is Present. Performed By: #### L 500.2500, L100.0100 #### [facility] [address] [place], [address] Lymphocytes/100 WBC (Bld) 25.7 % Normal 19-41 [facility] Comment on above: Performed By: #### L 500.2500, L100.0100 #### [facility] [address] [place], [address] MCH (RBC) [Entitic mass] 30.0 pg Normal 27.0-32.0 [facility] Comment on above: Performed By: #### L 500.2500, L100.0100 #### [facility] [address] [place], [address] MCHC (RBC) [Mass/Vol] 33.8 g/dL Normal 32-[address] [facility] Comment on above: Performed By: #### L 500.2500, L100.0100 #### [facility] [address] [place], [address] MCV (RBC) [Entitic vol] 88.7 fL Normal 80-94 [facility] Comment on above: Performed By: #### L 500.2500, L100.0100 #### [facility] [address] [place], [address] Monocytes/100 WBC (Bld) 8.2 % Normal 0-10 [facility] Comment on above: Performed By: #### L 500.2500, L100.0100 #### [facility] [address] [place], [address] Neutrophils/100 WBC (Bld) 60.7 % Normal 47-70 [facility] Comment on above: Performed By: #### L 500.2500, L100.0100 #### [facility] [address] [place], [address] Nucleated RBC (Bld) [#/Vol] 0 10*3/uL Normal 0-5 [facility] Comment on above: Performed By: #### L 500.2500, L100.0100 #### [facility] [address] [place], [address] Platelet mean volume (Bld) [Entitic vol] 9.2 fL Normal 6.2-12.0 [facility] Comment on above: Performed By: #### L 500.2500, L100.0100 #### [facility] [address] [place], [address] Platelets (Bld) [#/Vol] 306 10*3/uL Normal 150-450 [facility] Comment on above: Performed By: #### L 500.2500, L100.0100 #### [facility] [address] [place], [address] RBC (Bld) [#/Vol] 5.23 10*6/uL Normal 4.6-6.2 [facility] Comment on above: Performed By: #### L 500.2500, L100.0100 #### [facility] [address] [place], [address] RDW SD 43.4 fl Normal 35.1-43.9 [facility] Comment on above: Performed By: #### L 500.2500, L100.0100 #### [facility] [address] [place], [address] WBC (Bld) [#/Vol] 8.7 10*3/uL Normal 4.4-11.0 [facility] Comment on above: Performed By: #### L 500.2500, L100.0100 #### [facility] [address] [place], [address] Absolute lymphocyte countOrd ered By: Paty Pinedagar on 02-01-2023 Lymphocytes Auto (Unsp spec) [#/Vol] 2.54 10*3/uL 0.83-4.51 [facility] Basophil percentageOrdered B y: Paty Rosa on 02-01-2023 Basophils/100 WBC (Bld) 1.2 % 0-1 [facility] Bilirubin [Mass/Vol] 0.70 mg/dL 0.20-1.00 [facility] Comment on above: For patients on eltr ombopag therapy, use of Dimension [place] TBIL is not recommended. Chloride [Moles/Vol] 109 mmol/L 98-107 [facility] Cholesterol [Mass/Vol] 169 mg/dL <200 [facility] Comment on above: <200 mg/dL Desirable 200-240 mg/dL Borderline >240 mg/dL High Risk Eosinophils/100 WBC (Bld) 4.6 % 0-5 [facility] Glucose [Mass/Vol] 111 mg/dL 74-106 [facility] Comment on above: Fasting Glucose resu lt from 100 to 125 mg/dL suggests IMPAIRED HOMEOSTASIS per A.D.A. criteria. Neutrophils (Bld) [#/Vol] 4.9 10*3/uL 2.0-7.7 [facility] Neutrophils/100 WBC (Bld) 57.3 % 47-70 [facility] Potassium [Moles/Vol] 4.1 mmol/L 3.5-5.[address] [facility] Protein [Mass/Vol] 6.7 g/dL 6.4-8.2 [facility] Sodium [Moles/Vol] 140 mmol/L 136-145 [facility] Triglyceride [Mass/Vol] 110 mg/dL <199 [facility] Comment on above: The drugs N-Acetylcy steine and Metamizole may falsely depress this assay.Serum Triglycerides Reference Interval Normal <150 mg/dL Borderline high 150 - 199 mg/dL High 200 - 499 mg/dL Very High > or = 500 mg/dL WBC (Bld) [#/Vol] 8.6 10*3/uL 4.4-11.0 [facility] Blood erythrocytes count (nu mber/volume)Ordered By: Paty Rosa on 02-01-2023 RBC (Bld) [#/Vol] 5.21 10*6/uL 4.6-6.2 [facility] Blood hemoglobin measurement (mass/volume)Ordered By: Paty Rosa on 02-01-2023 Hemoglobin (Bld) [Mass/Vol] 15.2 g/dL 13.0-16.5 [facility] Blood lymphocytes/100 leukoc ytesOrdered By: Paty Rosa on 02-01-2023 Lymphocytes/100 WBC (Bld) 29.5 % 19-41 [facility] Blood monocytes/100 leukocyt esOrdered By: Paty Rosa on 02-01-2023 Monocytes/100 WBC (Bld) 7.1 % 0-10 [facility] Blood platelet mean volumeOr dered By: Paty Rosa on 02-01-2023 Platelet mean volume (Bld) [Entitic vol] 9.4 fL 6.2-12.0 [facility] Determination of erythrocyte mean corpuscular volume (MCV)Ordered By: Paty Rosa on 02-01-2023 MCV (RBC) [Entitic vol] 89.6 fL 80-94 [facility] Hematocrit Auto (Bld) [Volum e fraction]Ordered By: Paty Rosa on 02-01-2023 Hematocrit (Bld) [Volume fraction] 46.7 % 40-54 [facility] - Chemistry and C hemistry - challengeOrdered By: Paty Rosa on 02-01-2023 ALP [Catalytic activity/Vol] 116 U/L 45-117 [facility] ALT [Catalytic activity/Vol] 29 U/L 16-61 [facility] CO2 [Moles/Vol] 28.0 mmol/L 21.0-32.0 [facility] Globulin (S) [Mass/Vol] 3.2 g/dL 2.2-4.2 [facility] Urea nitrogen/Creatinine [Mass ratio] 18.3 mg/mg 10-20 [facility] - Hematology and Cell countsOrdered By: aPty Rosa on 02-01-2023 Erythrocyte distribution width (RBC) [Entitic vol] 44.1 fL 35.1-43.9 [facility] Erythrocyte distribution width (RBC) [Ratio] 13.4 % 11.6-14.6 [facility] Immature granulocytes/100 WBC (Bld) 0.300 % 0.0-0.9 [facility] Comment on above: IG% - Immature Granu locytes (promyelocytes, myelocytes and metamyelocytes) > 1% indicates that a LEFT SHIFT is Present. MCH (RBC) [Entitic mass] 29.2 pg 27.0-32.0 [facility] Nucleated RBC/100 WBC (Bld) [Ratio] 0 % 0-5 [facility] MCHC Auto (RBC) [Mass/Vol]Or dered By: Paty Rosa on 02-01-2023 MCHC (RBC) [Mass/Vol] 32.5 g/dL 32-[address] [facility] No Panel InformationOrdered By: Paty Rosa on 02-01-2023 Estimated GFR (MDRD) Amer 91 mL/min >60 [facility] Comment on above: GFR Calc Estimated GFR (MDRD) Non-Af Amer 75 mL/min >60 [facility] Comment on above: Non- GFR Calc Prostate Specific Antigen Screen 1.00 ng/mL 0.00-4.00 [facility] Comment on above: This test was perfor med using the TPSA assay method for theHipWay chemistry system. Values obtained with differentassay methods cannot be used interchangably.When changing PSA assays in the course of monitoring apatient, additional sequential testing should be carriedout to confirm baseline values. Platelets bldOrdered By: Dorina Rosa on 02-01-2023 Platelets (Bld) [#/Vol] 309 10*3/uL 150-450 [facility] Serum or plasma albumin kasie urement (mass/volume)Ordered By: Paty Rosa on 02-01-2023 Albumin [Mass/Vol] 3.5 g/dL 3.2-5.0 [facility] Serum or plasma albumin/glob ulin mass ratioOrdered By: Paty Rosa on 02-01-2023 Albumin/Globulin [Mass ratio] 1.1 {ratio} 0.9-2.4 [facility] Serum or plasma calcium kasie urement (mass/volume)Ordered By: Paty Rosa on 02-01-2023 Calcium [Mass/Vol] 8.9 mg/dL 8.5-10.1 [facility] Serum or plasma cholesterol in HDL measurement (mass/volume)Ordered By: Paty Rosa on 02-01-2023 Cholesterol in HDL [Mass/Vol] 28 mg/dL >40 [facility] Comment on above: The drugs N-Acetylcy steine and Metamizole may falsely depress this assay. Reference Range HDL <40 mg/dL Low HDL Cholesterol HDL >or= 60 mg/dL High HDL Cholesterol Serum or plasma cholesterol in VLDL measurement (mass/volume)Ordered By: Paty Rosa on 02-01-2023 Cholesterol in VLDL [Mass/Vol] 22 mg/dL 5-40 [facility] Serum or plasma creatinine m easurement (mass/volume)Ordered By: Paty Rosa on 02-01-2023 Creatinine [Mass/Vol] 1.09 mg/dL 0.70-1.[address] [facility] Comment on above: The validity of the calculated GFR & GFRAA in patients over 70 years has not been determined. Clinical correlation is essential. Serum or plasma low density lipoprotein (LDL) cholesterol measurement (mass/volume)Ordered By: Paty Rosa on 02-01-2023 Cholesterol in LDL [Mass/Vol] 119 mg/dL 0-130 [facility] Serum or plasma urea nitroge n measurement (mass/volume)Ordered By: Paty Rosa on 02-01-2023 Urea nitrogen [Mass/Vol] 20 mg/dL 7-18 [facility] Thin prep Papanicolaou smear with manual screeningOrdered By: Patysandy Rosa on 02-01-2023 Thin prep Papanicolaou smear with manual screening 14 U/L 15-37 [facility] Thin prep Papanicolaou smear with manual screening 3 5-15 [facility] Absolute lymphocyte counton 11-29-2021 Lymphocytes Auto (Unsp spec) [#/Vol] 1.99 10*3/uL 0.83-4.51 [facility] Work Phone: Basophil percentageon 2021 Basophils/100 WBC (Bld) 1.3 % 0-1 [facility] Work Phone: Bilirubin [Mass/Vol] 0.70 mg/dL 0.20-1.00 [facility] Work Phone: Comment on above: For patients on eltr ombopag therapy, use of [place] TBIL is not recommended. Chloride [Moles/Vol] 107 mmol/L 98-107 [facility] Work Phone: Cholesterol [Mass/Vol] 160 mg/dL <200 [facility] Work Phone: Comment on above: <200 mg/dL Desirable 200-240 mg/dL Borderline >240 mg/dL High Risk Eosinophils/100 WBC (Bld) 2.4 % 0-5 [facility] Work Phone: Glucose [Mass/Vol] 110 mg/dL 74-106 [facility] Work Phone: Comment on above: Fasting Glucose resu lt from 100 to 125 mg/dL suggests IMPAIRED HOMEOSTASIS per A.D.A. criteria. Neutrophils (Bld) [#/Vol] 4.6 10*3/uL 2.0-7.7 [facility] Work Phone: Neutrophils/100 WBC (Bld) 61.5 % 47-70 [facility] Work Phone: Potassium [Moles/Vol] 4.2 mmol/L 3.5-5.[address] [facility] Work Phone: Protein [Mass/Vol] 6.9 g/dL 6.4-8.2 [facility] Work Phone: Sodium [Moles/Vol] 140 mmol/L 136-145 [facility] Work Phone: Triglyceride [Mass/Vol] 95 mg/dL <199 [facility] Work Phone: Comment on above: The drugs N-Acetylcy steine and Metamizole may falsely depress this assay.Serum Triglycerides Reference Interval Normal <150 mg/dL Borderline high 150 - 199 mg/dL High 200 - 499 mg/dL Very High > or = 500 mg/dL WBC (Bld) [#/Vol] 7.5 10*3/uL 4.4-11.0 [facility] Work Phone: Blood erythrocytes count (nu mber/volume)on 11-29-2021 RBC (Bld) [#/Vol] 5.31 10*6/uL 4.6-6.2 [facility] Work Phone: Blood hemoglobin measurement (mass/volume)on 11-29-2021 Hemoglobin (Bld) [Mass/Vol] 16.1 g/dL 13.0-16.5 [facility] Work Phone: Blood lymphocytes/100 leukoc yteson 11-29-2021 Lymphocytes/100 WBC (Bld) 26.5 % 19-41 [facility] Work Phone: Blood monocytes/100 leukocyt eson 11-29-2021 Monocytes/100 WBC (Bld) 8.0 % 0-10 [facility] Work Phone: Blood platelet mean volumeon 11-29-2021 Platelet mean volume (Bld) [Entitic vol] 9.1 fL 6.2-12.0 [facility] Work Phone: Determination of erythrocyte mean corpuscular volume (MCV)on 11-29-2021 MCV (RBC) [Entitic vol] 89.1 fL 80-94 [facility] Work Phone: Hematocrit Auto (Bld) [Volum e fraction]on 11-29-2021 Hematocrit (Bld) [Volume fraction] 47.3 % 40-54 [facility] Work Phone: Laboratory - Chemistry and C hemistry - challengeon 11-29-2021 ALP [Catalytic activity/Vol] 119 U/L 45-117 [facility] Work Phone: ALT [Catalytic activity/Vol] 35 U/L 16-61 [facility] Work Phone: CO2 [Moles/Vol] 29.0 mmol/L 21.0-32.0 [facility] Work Phone: Globulin (S) [Mass/Vol] 3.0 g/dL 2.2-4.2 [facility] Work Phone: Urea nitrogen/Creatinine [Mass ratio] 13.8 mg/mg 10-20 [facility] Work Phone: Laboratory - Hematology and Cell countson 11-29-2021 Erythrocyte distribution width (RBC) [Entitic vol] 43.1 fL 35.1-43.9 [facility] Work Phone: Erythrocyte distribution width (RBC) [Ratio] 13.2 % 11.6-14.6 [facility] Work Phone: Immature granulocytes/100 WBC (Bld) 0.300 % 0.0-0.9 [facility] Work Phone: Comment on above: IG% - Immature Granu locytes (promyelocytes, myelocytes and metamyelocytes) > 1% indicates that a LEFT SHIFT is Present. MCH (RBC) [Entitic mass] 30.3 pg 27.0-32.0 [facility] Work Phone: Nucleated RBC/100 WBC (Bld) [Ratio] 0 % 0-5 [facility] Work Phone: MCHC Auto (RBC) [Mass/Vol]on 11-29-2021 MCHC (RBC) [Mass/Vol] 34.0 g/dL 32-[address] [facility] Work Phone: No Panel Informationon 11-29 Estimated GFR (MDRD) Amer 91 mL/min >60 [facility] Work Phone: Comment on above: GFR Calc Estimated GFR (MDRD) Non-Af Amer 75 mL/min >60 [facility] Work Phone: Comment on above: Non- GFR Calc Prostate Specific Antigen Screen 1.38 ng/mL 0.00-4.00 [facility] Work Phone: Comment on above: This test was perfor med using the TPSA assay method for [employer] chemistry system. Values obtained with differentassay methods cannot be used interchangably.When changing PSA assays in the course of monitoring apatient, additional sequential testing should be carriedout to confirm baseline values. Platelets bldon 11-29-2021 Platelets (Bld) [#/Vol] 306 10*3/uL 150-450 [facility] Work Phone: Serum or plasma albumin kasie urement (mass/volume)on 11-29-2021 Albumin [Mass/Vol] 3.9 g/dL 3.2-5.0 [facility] Work Phone: Serum or plasma albumin/glob ulin mass ratioon 11-29-2021 Albumin/Globulin [Mass ratio] 1.3 {ratio} 0.9-2.4 [facility] Work Phone: Serum or plasma calcium kasie urement (mass/volume)on 11-29-2021 Calcium [Mass/Vol] 8.7 mg/dL 8.5-10.1 [facility] Work Phone: Serum or plasma cholesterol in HDL measurement (mass/volume)on 11-29-2021 Cholesterol in HDL [Mass/Vol] 28 mg/dL >40 [facility] Work Phone: Comment on above: The drugs N-Acetylcy steine and Metamizole may falsely depress this assay. Reference Range HDL <40 mg/dL Low HDL Cholesterol HDL >or= 60 mg/dL High HDL Cholesterol Serum or plasma cholesterol in VLDL measurement (mass/volume)on 11-29-2021 Cholesterol in VLDL [Mass/Vol] 19 mg/dL 5-40 [facility] Work Phone: Serum or plasma creatinine m easurement (mass/volume)on 11-29-2021 Creatinine [Mass/Vol] 1.09 mg/dL 0.70-1.[address] [facility] Work Phone: Comment on above: The validity of the calculated GFR & GFRAA in patients over 70 years has not been determined. Clinical correlation is essential. Serum or plasma low density lipoprotein (LDL) cholesterol measurement (mass/volume)on 11-29-2021 Cholesterol in LDL [Mass/Vol] 113 mg/dL 0-130 [facility] Work Phone: Serum or plasma urea nitroge n measurement (mass/volume)on 11-29-2021 Urea nitrogen [Mass/Vol] 15 mg/dL 7-18 [facility] Work Phone: Thin prep Papanicolaou smear with manual screeningon 11-29-2021 Thin prep Papanicolaou smear with manual screening 11 U/L 15-37 [facility] Work Phone: Thin prep Papanicolaou smear with manual screening 4 5-15 [facility] Work Phone: Whole blood hemoglobin A1c/t otal hemoglobin ratio (mass fraction)on 11-29-2021 HbA1c (Bld) [Mass fraction] 5.3 % 3.8-5.6 [facility] Work Phone: Comment on above: Normal < [...] Date: 03/30/2020 11:38:00 AM Ordering Provider:Stefan Rodriguez [facility]ly [facility], [facility] ([place]) Vital Signs Date Time Vital Sign Value Performing Clinician Faci lity 02-20-2023 09:09-0500 Body temperature 97.3 [degF] Dr. Juliocesar Brownlee Work Phone: [facility] 02-20-2023 09:09-0500 Diastolic blood pressure 75 mm[Hg] Dr. Juliocesar Brownlee Work Phone: [facility] 02-20-2023 09:09-0500 Heart rate 61 /min Dr. Juliocesar Brownlee Work Phone: [facility] 02-20-2023 09:09-0500 Respiratory rate 18 /min Dr. Juliocesar Brownlee Work Phone: [facility] 02-20-2023 09:09-0500 SaO2% (BldA) [Mass fraction] 100 % Dr. Juliocesar Brownlee Work Phone: [facility] 02-20-2023 09:09-0500 Systolic blood pressure 105 mm[Hg] Dr. Juliocesar Brownlee Work Phone: [facility] 02-20-2023 07:14-0500 Body height 177.[address] Juliocesar Brownlee Work Phone: [facility] 02-20-2023 07:14-0500 Body mass index (BMI) [Ratio] 30.8 kg/m2 Dr. Juliocesar Brownlee Work Phone: [facility] 02-20-2023 07:14-0500 Body weight 97.[address] Juliocesar Brownlee Work Phone: [facility] 01-04-2023 09:57-0500 Body height 177.[address] Juliocesar Brownlee Work Phone: [facility] 01-04-2023 09:57-0500 Body mass index (BMI) [Ratio] 30.8 kg/m2 Dr. Juliocesar Brownlee Work Phone: [facility] 01-04-2023 09:57-0500 Body weight 97.[address] Juliocesar Brownlee Work Phone: [facility] Encounters Encounter Date Encounter Type Care Provider Facility Start: 04-28-2024 End: 04-28-2024 ambulatory Juliocesar Brownlee Facility:[facility] Start: 02-06-2024 Encounter for genera l adult medical examination without abnormal findings Juliocesar [facility] Start: 01-18-2024 End: 01-18-2024 ambulatory Juliocesar Torrie Facility:[facility] Start: 01-08-2024 End: 01-08-2024 ambulatory Juliocesar Torrie Facility:[facility] Start: 12-28-2023 Encounter for other preprocedural examination Caren Kevin [facility] Start: 12-07-2023 End: 12-07-2023 ambulatory [facility] Facility:[facility] Start: 12-07-2023 End: 12-07-2023 ambulatory Juliocesar Torrie Facility:[facility] Start: 02-20-2023 Non-patient / Non-visit Dr. Laura Brownlee Work Phone: [facility] Start: 02-20-2023 End: 02-20-2023 Admission to same day surgery center Dr. Juliocesar Brownlee Work Phone: [facility] Work Phone: Start: 02-20-2023 End: 02-20-[address] Juliocesar Brownlee Work Phone: [facility] Work Phone: Start: 02-01-2023 End: 02-01-[address] Juliocesar Brownlee Work Phone: [facility] Work Phone: Start: 02-01-2023 End: 02-01-[address] Juliocesar Brownlee Work Phone: [facility], [facility] Work Phone: Start: 02-01-2023 End: 02-01-[address] Juliocesar Brownlee Work Phone: [facility] Work Phone: Start: 02-01-2023 End: 02-01-[address] Juliocesar Brownlee Work Phone: [facility] Work Phone: Start: 01-04-2023 Non-patient / Non-visit Dr. Laura Brownlee Work Phone: [facility] Work Phone: Start: 11-29-2021 End: 11-29-2021 ambulatory [facility] Work Phone: Start: 11-29-2021 End: 11-29-2021 Patient encounter procedure [facility] Procedures Date Procedure Procedure Detail Performing Clinician Start: 02-20-[address] Juliocesar gray Work Phone: Start: 02-01-[address] Juliocesar gray Work Phone: Plan of Treatment Date Care Activity Detail Author Start: 02-20-2023 Patient discharge [facility] Colonoscopy [facility] Patient referral [facility] Work Phone: Immunizations Immunization Date Immunization Notes Care Provider Fa cility 05-12-2020 Covid (Pfizer) [facility] 04-21-2020 Covid (Pfizer) [facility] Payers Date Payer Category Payer Self-pay [id number] 2016 Unknown [id number] Unknown [id number] [id number] Unknown [id number] [id number] Unknown [id number] [id number] [id number] Unknown [id number] [id number] [id number] Unknown [id number] 2.16.8 [id number] Social History Date Type Detail Facility Start: 08-14-2019 End: 02-20-2023 Tobacco smoking status NHIS Unknown if ever smoked [facility] Start: 1970 Sex Assigned At Male W [facility] Goals Date Patient Goal Desired Activity /State Mental Status Date Assessment Result Facility 02-20-2023 Cognitive function Voice/Name [facility] Work Phone: History and physical note 02-20-2023 Note Date & Type Note Facility 02-20-2023 History and physi ashly note Note Date/Time February 20, 2023 7:20am [facility] Medical Records Department [address] [place] [address] History & Physical Exam 02/20/23 0718 MR#: [id number] Acct: [id number] Name: SANGEETHA CHRISTOPHER Rep #:[id number] : 1970 52 From: Emeli Diaz MD PCP: Dr. Juliocesar Brownlee, DO Status:[facility] Location: [place] [address] HPI - General General Date of Service: 02/20/23 HPI Narrative SANGEETHA CHRISTOPHER, is a 52 M who presents for surveillance colonoscopy due to history of colon polyps. Patient's last colonoscopy was 08/2019 patient had 3 polyps at that time. Patient has bowel movements daily denies any blood. Patient denies any chronic abdominal pain/nausea/vomiting/chronic abdominal pain. Patient denies any family history of colon cancer. [facility] Medical History (Updated 02/20/23 @ 07:20 by [...] Hx Pacemaker: No Hx Cardiac Catheterization: Yes ([facility] 2016) What facility was last heart cath [...] Cough Discharge Is Pt Admitted From a Shelter, or a Penitentiary: No After D/C, Where [...] to complete colonoscopy requiring barium enema. 02/20/23 0759 <Electronically signed by Emeli Diaz MD> Cosigner Signature (if applicable): CC: Dr. Juliocesar Brownlee, DO; Dr. Emeli Diaz MD~ Signed [facility] Work Phone: Procedure note 02-20-2023 Note Date & Type Note Facility 02-20-2023 Procedure note [facility] Procedure note 02-20-2023 Note Date & Type Note Facility 02-20-2023 Procedure note [facility] Evaluation note Note Date & Type Note Facility Evaluation note No assessment information availa ble [facility] Work Phone: Evaluation note Note Date & Type Note Facility Evaluation note Diagnosis Onset Date Hx of colonic polyps acute [facility] Work Phone: Summary Purpose Family History No Family History Records FoundNo Family History Records Found Advance Directives No Advanced Directives Records Found Advance Directive Response Recorded Date/ Time Living Will Yes August 14, 2019 9 :34am Power of Plumber Maintenance Yes August 14, 2019 9:34am Advance Directive Response Recorded Date/ Time Living Will Yes August 14, 2019 8 :34am Power of Plumber Maintenance Yes August 14, 2019 8:34am Advance Directive Response Recorded Date/ Time Name of Medical Power of Plumber Maintenance MARK [employer] February 15, 2023 3:41pm Living Will Yes February 15 3:41pm Power of Plumber Maintenance Yes February 15, 2023 3:41pm Chief Complaint and Reason for Visit Chief Complaint Amb Documentation NICOTINE ABUSE Chief Complaint Amb Documentation NICOTINE ABUSE Reason for Visit Hx of colonic polyps Additional Source Comments (unrecognized sect ion and content) No Status Records FoundNo Status Records Found INFORMATION SOURCE (unrecogn ized section and content) DATE CREATED AUTHOR 06/09/2020 [place] [facility] ([place]) DATE CREATED AUTHOR AUTHOR'S ORGANIZ ATION 04/28/2024 [facility] Goals (unrecognized section and content) Goals may [...] BE BASED ON THE PRIMARY CLINICAL RECORDS. [facility] [employer] [facility] provides no warranty or guarantee of the accuracy or completeness of information in this document.
--- NOTE | 2025-01-29 07:15 | US_ITS ---
EXAM: US Abdomen Limited, Right Upper Quadrant CLINICAL INDICATION: SOFT TUSSUE MASS R ABDOMEN, LIPOMA SUSPECTED TECHNIQUE: Real-time ultrasound of the right upper quadrant with image documentation. COMPARISON: No relevant prior studies available. US/Abdomen Limited FINDINGS/IMPRESSION: 7.0 x 7.4 x 2.4 cm lipoma. Reading Location: [id number]
== END | disposition home or self-care (01) ==
LOC: US 07:11
PROVIDERS: PCP Family Medicine; Referring Provider Family Medicine; Visit Provider Family Medicine
DX: R22.2 Localized swelling, mass and lump, trunk (principal)
CPT/HCPCS: 76705